=== PATIENT | male | born 1935 | race Caucasian/White ===

== ENCOUNTER 2017-02-11 15:29 | Outpatient (CLI) | payer MEDICARE, OTHER | END 2017-02-11 15:30 | disposition critical access hospital (66) | DX: R55 Syncope and collapse (principal) | CPT/HCPCS: A0425; A0427 ==

== ENCOUNTER 2017-02-11 15:49 | Emergency (ER) | payer MEDICARE, OTHER ==
[2017-02-11] MEDS ORDERED: ASPIRIN CHEW 81 MG TABLET PO STA (16:08)
[2017-02-11] MEDS ORDERED: ONDANSETRON 4 MG/2 ML VIAL IVP STA (16:08)
[2017-02-11] MEDS ORDERED: SODIUM CHLORIDE 0.9% 1,000 ML IV ONE ×3 (16:08→17:30)
[2017-02-11] MEDS ORDERED: ONDANSETRON 4 MG/2 ML VIAL ONE (16:28)
[2017-02-11] MEDS ORDERED: ASPIRIN CHEW 81 MG TABLET ONE (16:28)
== END 2017-02-11 19:11 | disposition home or self-care (01) ==
DX: R55 Syncope and collapse (principal); E86.0 Dehydration; D64.9 Anemia, unspecified; R00.1 Bradycardia, unspecified; R03.0 Elevated blood-pressure reading, without diagnosis of hypertension; Z79.82 Long term (current) use of aspirin
CPT/HCPCS: 36415; 70450; 71020; 80053; 83605; 83690; 83880; 84484; 85025; 87040; 93005; 93010; 96374; 99284; A9270

== ENCOUNTER 2017-03-05 09:01 | Outpatient (CLI) | payer MEDICARE, OTHER | END 2017-03-05 09:02 | disposition home or self-care (01) | DX: M50.30 Other cervical disc degeneration, unspecified cervical region (principal); M47.892 Other spondylosis, cervical region ==

== ENCOUNTER 2017-03-12 13:23 | Outpatient (CLI) | payer MEDICARE, OTHER | END 2017-03-12 13:24 | DX: R73.09 Other abnormal glucose (principal) ==

== ENCOUNTER 2018-03-22 08:00 | Outpatient (CLI) | payer MEDICARE, OTHER ==
[2018-03-22 11:30] LABS: BASOPHILS % (AUTO) 0.5 %; EOSINOPHILS # (AUTO) 0.5 10^3/uL (0.0-0.7); EOSINOPHILS % (AUTO) 6.1 %; LYMPHOCYTES # (AUTO) 1.5 10^3/uL (1.5-3.5); LYMPHOCYTES % (AUTO) 20.1 %; MEAN CORPUSCULAR HEMOGLOBIN 29.9 pg (27.0-31.0); MEAN CORPUSCULAR HGB CONC 33.4 g/dL (32.0-36.0); MEAN CORPUSCULAR VOLUME 89.4 fL (80.0-94.0); MEAN PLATELET VOLUME 8.4 fL (7.4-11.4); MONOCYTES # (AUTO) 0.8 10^3/uL (0.0-1.0); NEUTROPHILS # (AUTO) 4.8 10^3/uL (1.5-6.6); NEUTROPHILS % (AUTO) 62.3 %; PLT - PLATELET COUNT 281 10^3/uL (130-450); RED BLOOD COUNT 4.69 10^6/uL (4.70-6.10); RED CELL DISTRIBUTION WIDTH 14.7 % (12.0-15.0); WHITE BLOOD COUNT 7.7 x10^3/uL (4.8-10.8)
[2018-03-22 12:01] LABS: ALBUMIN 4.1 g/dL (3.2-5.5); ALBUMIN/GLOBULIN RATIO 1.4 (1.0-2.2); ALKALINE PHOSPHATASE 53 IU/L (42-121); ALT ALANINE AMINOTRANSFERASE 15 IU/L (10-60); AST ASPARTATE AMINOTRANSFERASE 21 IU/L (10-42); BUN - BLOOD UREA NITROGEN 22 mg/dL (6-20); CALCIUM 8.9 mg/dL (8.5-10.3); CARBON DIOXIDE - CO2 25 mmol/L (21-32); CHLORIDE 106 mmol/L (101-111); CHOL/HDL RATIO 3.6 (<5.0); CHOLESTEROL 208 mg/dL; CREATININE 0.9 mg/dL (0.6-1.2); GFR - MDRD 81 (>89); GLUCOSE 91 mg/dL (70-100); HDL CHOLESTEROL 58 mg/dL; LDL CHOLESTEROL,CALCULATED 134 mg/dL; LDL/HDL RATIO 2.3 (<3.6); SODIUM 138 mmol/L (135-145); VLDL CHOLESTEROL 16 mg/dL
== END 2018-03-22 08:01 | disposition home or self-care (01) ==
LOC: LAB.R 08:00
PROVIDERS: ATTEND Internal Medicine
DX: M06.4 Inflammatory polyarthropathy (principal); E78.5 Hyperlipidemia, unspecified; K58.9 Irritable bowel syndrome, unspecified
CPT/HCPCS: 80053; 80061; 83721; 85025

== ENCOUNTER 2020-08-12 08:00 | Outpatient (CLI) | payer MEDICARE, OTHER ==
[2020-08-12 11:54] LABS: BASOPHILS % (AUTO) 0.5 %; EOSINOPHILS # (AUTO) 0.4 10^3/uL (0.0-0.7); EOSINOPHILS % (AUTO) 4.7 %; HGB - HEMOGLOBIN 14.5 g/dL (14.0-18.0); LYMPHOCYTES % (AUTO) 34.9 %; MEAN CORPUSCULAR HEMOGLOBIN 29.8 pg (27.0-31.0); MEAN CORPUSCULAR HGB CONC 31.3 g/dL (32.0-36.0); MEAN CORPUSCULAR VOLUME 95.5 fL (80.0-94.0); MEAN PLATELET VOLUME 10.3 fL (7.4-11.4); MONOCYTES # (AUTO) 0.7 10^3/uL (0.0-1.0); MONOCYTES % (AUTO) 8.6 %; NEUTROPHILS # (AUTO) 4.3 10^3/uL (1.5-6.6); NEUTROPHILS % (AUTO) 50.9 %; PLT - PLATELET COUNT 330 10^3/uL (130-450); RED BLOOD COUNT 4.86 10^6/uL (4.70-6.10); RED CELL DISTRIBUTION WIDTH 13.7 % (12.0-15.0); WHITE BLOOD COUNT 8.5 x10^3/uL (4.8-10.8)
[2020-08-12 11:59] LABS: ALBUMIN 4.2 g/dL (3.2-5.5); ALBUMIN/GLOBULIN RATIO 1.4 (1.0-2.2); ALKALINE PHOSPHATASE 63 IU/L (42-121); ALT ALANINE AMINOTRANSFERASE 21 IU/L (10-60); AST ASPARTATE AMINOTRANSFERASE 17 IU/L (10-42); BILIRUBIN,TOTAL 0.8 mg/dL (0.2-1.0); BUN - BLOOD UREA NITROGEN 23 mg/dL (6-20); CALCIUM 9.8 mg/dL (8.5-10.3); CARBON DIOXIDE - CO2 29 mmol/L (21-32); CHLORIDE 104 mmol/L (101-111); CHOL/HDL RATIO 3.6 (<5.0); CHOLESTEROL 211 mg/dL; GLUCOSE 90 mg/dL (70-100); HDL CHOLESTEROL 59 mg/dL; LDL CHOLESTEROL,CALCULATED 131 mg/dL; LDL/HDL RATIO 2.2 (<3.6); SODIUM 139 mmol/L (135-145); TOTAL PROTEIN 7.1 g/dL (6.7-8.2); VLDL CHOLESTEROL 21 mg/dL
== END 2020-08-12 23:59 | disposition home or self-care (01) ==
LOC: LAB.WCP 08:00
PROVIDERS: ATTEND Family Medicine
DX: R42 Dizziness and giddiness (principal); E78.5 Hyperlipidemia, unspecified
CPT/HCPCS: 36415; 80053; 80061; 83721; 84443; 85025

== ENCOUNTER 2020-08-25 08:47 | Outpatient (CLI) | payer MEDICARE, OTHER | END 2020-08-25 08:48 | disposition home or self-care (01) | LOC: DI 08:47 | PROVIDERS: ATTEND Family Medicine | DX: I51.7 Cardiomegaly (principal) | CPT/HCPCS: 93306 ==

== ENCOUNTER 2020-09-24 10:12 | Outpatient (CLI) | payer MEDICARE, OTHER ==
[2020-09-24] MEDS ORDERED: GADOBUTROL 7.5 MMOL/7.5 ML VIAL ONE (11:39)
[2020-09-24] MEDS ORDERED: GADOBUTROL 7.5 MMOL/7.5 ML VIAL IVP ONE (12:37)
--- NOTE | 2020-09-24 16:03 | MRI Report ---
PROCEDURE: Brain W/WO INDICATIONS: DIZZINESS/VERTIGO CONTRAST: IV CONTRAST: Gadavist ml: 7.5 TECHNIQUE: Noncontrast axial T1 spin echo, axial T2 fast spin echo, sagittal and axial FLAIR, coronal T2 fast sp in echo, axial gradient echo, axial diffusion and ADC through the brain. After the administration of contrast, axial and coronal T1 spin echo with fat saturation through the brain. COMPARISON: CT head 02/11/2017, 04/14/2016 FINDINGS: Image quality: Excellent. CSF spaces: Basal cisterns are patent. No extra-axial fluid collections. Ventricles are normal in size and shape. Brain: No midline shift. No intracranial bleeds or masses. No abnormal intracranial enhancement. There is cerebral volume loss for age. There is periventricular white matter chronic small vessel is chemic change. The brainstem appears normal. Diffusion-weighted images demonstrate no acute ischemi c insults. No chronic ischemic insults. Normal intravascular flow voids are present. Cerebellopontine angles are unremarkable. Visualized cranial nerves demonstrate no areas of abnormal enhancement, signal or mass lesion. Skull and face: Calvarial marrow is normal in signal. Orbits appear normal. Sinuses: Sinuses and mastoids appear clear. IMPRESSION: 1. No acute intracranial process. 2. Mild atrophy and chronic microvascular ischemic changes. 3. Visualized cranial or symmetric no areas of abnormal enhancement, signal or mass lesion. Reviewed by: Alisha Griffin MD on 09/24/2020 4:02 PM PST Approved by: Alisha Griffin MD on 09/24/2020 4:02 PM PST Station ID: [id number]
== END 2020-09-24 10:13 | disposition home or self-care (01) ==
LOC: DI 10:12
PROVIDERS: ATTEND Family Medicine
DX: R42 Dizziness and giddiness (principal); G31.9 Degenerative disease of nervous system, unspecified; I67.2 Cerebral atherosclerosis
CPT/HCPCS: 70553; A9585

== ENCOUNTER 2021-01-27 12:54 | Outpatient (CLI) | payer MEDICARE, OTHER ==
--- NOTE | 2021-01-27 14:01 | XRAY Report ---
PROCEDURE: Lumbar Spine 2 View INDICATIONS: LOW BACK PAIN TECHNIQUE: 2 views of the lumbar spine were acquired. COMPARISON: None. FINDINGS: Bones: 5 [id number] vertebrae are present. There is loss of normal lumbar lordosis. No vertebr al body compression fractures. No suspicious bony lesions. Multilevel disc space narrowing and endp late osteophytes. Facet hypertrophy throughout the mid and lower lumbar spine. Mild diffuse leftward curvature of the lumbar spine. Soft tissues: Overlying bowel gas pattern is normal. No suspicious soft tissue calcifications. IMPRESSION: Multilevel degenerative disc and facet disease. No acute fracture. No osseous lesion. If symptoms and/or clinical suspicion for pathology continue, further assessment with repeat plain film s, or advanced imaging (e.g., CT, MRI, or bone scan) is recommended for further assessment. Reviewed by: Dixie Vasquez MD on 01/27/2021 1:59 PM PST Approved by: Dixie Vasquez MD on 01/27/2021 1:59 PM PST Station ID: [id number]
== END 2021-01-27 12:55 | disposition home or self-care (01) ==
LOC: DI 12:54
PROVIDERS: ATTEND Family Medicine
DX: M54.5 Low back pain (principal); G89.29 Other chronic pain; M51.36 Other intervertebral disc degeneration, lumbar region

== ENCOUNTER 2021-07-11 15:06 | Outpatient (CLI) | payer MEDICARE, OTHER ==
[2021-07-11 15:25] LABS: BASOPHILS # (AUTO) 0.1 10^3/uL (0.0-0.1); BASOPHILS % (AUTO) 0.5 %; EOSINOPHILS # (AUTO) 0.3 10^3/uL (0.0-0.7); EOSINOPHILS % (AUTO) 3.1 %; HCT - HEMATOCRIT 44.5 % (42.0-52.0); HGB - HEMOGLOBIN 14.4 g/dL (14.0-18.0); LYMPHOCYTES # (AUTO) 2.4 10^3/uL (1.5-3.5); LYMPHOCYTES % (AUTO) 22.1 %; MEAN CORPUSCULAR HEMOGLOBIN 30.5 pg (27.0-31.0); MEAN CORPUSCULAR HGB CONC 32.4 g/dL (32.0-36.0); MEAN CORPUSCULAR VOLUME 94.3 fL (80.0-94.0); MEAN PLATELET VOLUME 9.6 fL (7.4-11.4); MONOCYTES # (AUTO) 0.9 10^3/uL (0.0-1.0); MONOCYTES % (AUTO) 8.4 %; NEUTROPHILS # (AUTO) 7.1 10^3/uL (1.5-6.6); NEUTROPHILS % (AUTO) 65.6 %; PLT - PLATELET COUNT 316 10^3/uL (130-450); RED BLOOD COUNT 4.72 10^6/uL (4.70-6.10); RED CELL DISTRIBUTION WIDTH 13.8 % (12.0-15.0); WHITE BLOOD COUNT 10.7 x10^3/uL (4.8-10.8)
[2021-07-11 15:45] LABS: ALBUMIN 4.4 g/dL (3.2-5.5); ALBUMIN/GLOBULIN RATIO 1.6 (1.0-2.2); ALKALINE PHOSPHATASE 52 IU/L (42-121); ALT ALANINE AMINOTRANSFERASE 16 IU/L (10-60); AST ASPARTATE AMINOTRANSFERASE 16 IU/L (10-42); BILIRUBIN,TOTAL 0.5 mg/dL (0.2-1.0); BUN - BLOOD UREA NITROGEN 21 mg/dL (6-20); CALCIUM 9.8 mg/dL (8.5-10.3); CARBON DIOXIDE - CO2 23 mmol/L (21-32); CHLORIDE 103 mmol/L (101-111); CHOL/HDL RATIO 3.4 (<5.0); CHOLESTEROL 217 mg/dL; CREATININE 1.1 mg/dL (0.6-1.2); GFR - MDRD 63 (>89); GLUCOSE 104 mg/dL (70-100); HDL CHOLESTEROL 63 mg/dL; LDL CHOLESTEROL,CALCULATED 127 mg/dL; POTASSIUM 4.4 mmol/L (3.5-5.0); SODIUM 137 mmol/L (135-145); TOTAL PROTEIN 7.1 g/dL (6.7-8.2); TRIGLYCERIDES 134 mg/dL; VLDL CHOLESTEROL 27 mg/dL
== END 2021-07-11 15:07 | disposition home or self-care (01) ==
LOC: LAB 15:06
PROVIDERS: ATTEND Family Medicine
DX: Z79.899 Other long term (current) drug therapy (principal)
CPT/HCPCS: 36415; 80053; 80061; 83721; 85025

== ENCOUNTER 2022-04-14 01:32 | Emergency (ER) | payer MEDICARE, OTHER ==
[2022-04-14] MEDS ORDERED: DEXAMETHASONE 10 MG/ML VIAL IVP STA (02:49)
[2022-04-14] MEDS ORDERED: KETOROLAC 15 MG/ML VIAL IVP STA (02:50)
--- NOTE | 2022-04-14 04:19 | ED Physician Documentation ---
PD HPI NECK PAIN - Stated complaint Stated Complaint: LT NECK/BACK PX - Chief complaint Chief Complaint: Ext Problem - History obtained from History obtained from: Patient - History of Present Illness Timing - onset: Enter time (0900), Yesterday Timing - duration: Hours Timing - details: Abrupt onset, Still present Location: Mid, Lower, Left Quality: Pain, Spasm, Sharp Associated symptoms: No: Fever, Weakness, Numbness, Incontinent of urine, Unable to urinate, Hematuria, Incontinent of stool Improves with: Rest, Position Worsened by: Movement, Palpation Similar symptoms before: Has not had sx before Recently seen: Not recently seen - Additional information Additional information: Previously well 86-year-old Jadyn Chacko awoke yesterday morning with a stiff neck to the left side and he was able to go about his usual day expecting this to resolve itself. As the day went on pain worsened and he was unable to sleep or get comfortable at all. He decided to come to the emergency department in the wee hours of the morning. The patient is generally healthy is on no medications. The patient tells me he has not had a neck injury but in his chart I find a visit 7 years ago for an injury to the neck and left shoulder. The patient does state that he has woken up previously with a stiff neck and this usually resolves within several hours. He became markedly concerned when it did not resolve. He was having even a hard time moving his left arm secondary to pain in his neck. He denies any neurologic signs Review of Systems Constitutional: denies: Fever Eyes: denies: Decreased vision Ears: denies: Ear pain Nose: denies: Congestion Throat: denies: Sore throat Cardiac: denies: Chest pain / pressure, Palpitations Respiratory: denies: Dyspnea, Cough GI: denies: Abdominal Pain, Nausea, Vomiting, Constipation, Diarrhea : denies: Dysuria, Frequency Skin: denies: Rash Musculoskeletal: reports: Neck pain, Extremity pain. denies: Back pain Neurologic: denies: Generalized weakness, Focal weakness, Numbness PD PAST MEDICAL HISTORY - Past Medical History : Benign prostate hypertrophy Musculoskeletal: Chronic back pain - Past Surgical History Past Surgical History: Yes General: Appendectomy Ortho: Rotator cuff repair - Present Medications Home Medications: Ambulatory Orders Medication Instructions Recorded Confirmed Aspirin [Aspir 81] 81 mg PO QPM 07/23/15 04/14/22 Cyclobenzaprine [Flexeril] 10 mg PO TID PRN #20 tablet 04/14/22 HYDROcod/ACETAM 5/325 [[place] 5/325] 1 - 2 tablet PO Q6H PRN #14 tablet 04/14/22 - Allergies Allergies/Adverse Reactions: Allergies Allergy/AdvReac Type Severity Reaction Status Date / Time finasteride Allergy Unknown Verified 04/14/22 02:38 Sulfa (Sulfonamide Allergy Diaphoresis Verified 04/14/22 02:38 Antibiotics) - Social History Does the pt smoke?: No Smoking Status: Never smoker Does the pt drink ETOH?: No Does the pt have substance abuse?: No - Immunizations Immunizations are current?: Yes - POLST Patient has POLST: No PD ED PE NORMAL - Vitals Vital signs reviewed: Yes (hypertensive mild ) - General General: Alert and oriented X 3, No acute distress, Well developed/nourished - HEENT HEENT: Atraumatic, PERRL, EOMI - Neck Neck: Supple, no meningeal sign, No bony TTP, Other (There is specific tenderness to the paraspinous muscles of the neck on the left side posteriorly at the level of C3/4. Specific point tenderness. 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, No motor deficit, No sensory deficit, Normal speech Eye Opening: Spontaneous Motor: Obeys Commands Verbal: Oriented GCS Score: 15 - Psych Psych: Normal mood, Normal affect Results - Vitals Vitals: Vital Signs - 24 hr 04/14/22 04/14/22 01:45 04:41 Temperature 36.7 C Heart Rate 76 77 Respiratory 18 19 Rate Blood Pressure 142/61 H 135/76 H O2 Saturation 95 96 Oxygen O2 Source Room air PD MEDICAL DECISION MAKING - ED course Complexity details: reviewed old records, reviewed results, re-evaluated patient, considered differential, d/w patient ED course: 86-year-old previously well male on no medications presents to the emergency department with a stiff neck and severe pain. He has specific point tenderness to a area on his neck without palpable mass and not in an area where I would expect dissection. He is administer decadron and toradal IV with some improvement but not resolution. He is not able to take ibuprofen secondary to gastric issues and we have dispensed some norco. We are expecting recovery in 2- 5 days. Departure - Departure Disposition: 01 Home, Self Care Clinical Impression: Torticollis, acute Condition: Stable Instructions: Torticollis Follow-Up: [facility] [Provider Group] Prescriptions: Cyclobenzaprine [Flexeril] 10 mg PO TID PRN #20 tablet PRN Reason: Spasms HYDROcod/ACETAM 5/325 [[place] 5/325] 1 - 2 tablet PO Q6H PRN #14 tablet PRN Reason: Pain Comments: Jadyn, today it looks like you have a wry neck or torticollis (a stiff neck). This will usually resolve in 2 to 5 days. The recommendation is to use ice and stretch and I have provided some pain medication a muscle relaxant to use as needed. These [place] [facility] [place] Discharge Date/Time: 04/14/22 04:44
[2022-04-14] MEDS ORDERED: HYDROcod/ACET 5/325 Prepack 4 PO STA (04:22)
[2022-04-14 04:44] VITALS: BP 135/76
== END 2022-04-14 04:44 | disposition home or self-care (01) ==
LOC: ED 01:32
DX: M43.6 Torticollis (principal)
CPT/HCPCS: 36415; 96374; 99284

== ENCOUNTER 2022-09-27 12:17 | Outpatient (CLI) | payer MEDICARE, OTHER ==
[2022-09-27 12:33] LABS: BASOPHILS # (AUTO) 0.1 10^3/uL (0.0-0.1); BASOPHILS % (AUTO) 0.7 %; EOSINOPHILS # (AUTO) 0.3 10^3/uL (0.0-0.7); EOSINOPHILS % (AUTO) 3.4 %; HCT - HEMATOCRIT 47.5 % (42.0-52.0); HGB - HEMOGLOBIN 15.2 g/dL (14.0-18.0); LYMPHOCYTES # (AUTO) 1.9 10^3/uL (1.5-3.5); LYMPHOCYTES % (AUTO) 21.9 %; MEAN CORPUSCULAR HEMOGLOBIN 29.9 pg (27.0-31.0); MEAN CORPUSCULAR VOLUME 93.5 fL (80.0-94.0); MEAN PLATELET VOLUME 9.6 fL (7.4-11.4); MONOCYTES # (AUTO) 0.9 10^3/uL (0.0-1.0); MONOCYTES % (AUTO) 9.7 %; NEUTROPHILS # (AUTO) 5.7 10^3/uL (1.5-6.6); PLT - PLATELET COUNT 323 10^3/uL (130-450); RED BLOOD COUNT 5.08 10^6/uL (4.70-6.10); RED CELL DISTRIBUTION WIDTH 14.6 % (12.0-15.0); WHITE BLOOD COUNT 8.9 x10^3/uL (4.8-10.8)
[2022-09-27 12:53] LABS: ALBUMIN 4.3 g/dL (3.2-5.5); ALBUMIN/GLOBULIN RATIO 1.3 (1.0-2.2); ALKALINE PHOSPHATASE 61 IU/L (42-121); ALT ALANINE AMINOTRANSFERASE 16 IU/L (10-60); AST ASPARTATE AMINOTRANSFERASE 14 IU/L (10-42); BILIRUBIN,TOTAL 0.7 mg/dL (0.2-1.0); BUN - BLOOD UREA NITROGEN 23 mg/dL (6-20); CALCIUM 9.9 mg/dL (8.5-10.3); CARBON DIOXIDE - CO2 25 mmol/L (21-32); CHLORIDE 105 mmol/L (101-111); CHOL/HDL RATIO 3.5 (<5.0); CHOLESTEROL 230 mg/dL; CREATININE 1.2 mg/dL (0.6-1.2); GFR - MDRD 57 (>89); GLUCOSE 103 mg/dL (70-100); HDL CHOLESTEROL 65 mg/dL; LDL CHOLESTEROL,CALCULATED 144 mg/dL; LDL/HDL RATIO 2.2 (<3.6); SODIUM 139 mmol/L (135-145); TOTAL PROTEIN 7.6 g/dL (6.7-8.2); TRIGLYCERIDES 106 mg/dL; VLDL CHOLESTEROL 21 mg/dL
== END 2022-09-27 12:18 | disposition home or self-care (01) ==
LOC: LAB 12:17
PROVIDERS: ATTEND Physician Assistant
DX: R42 Dizziness and giddiness (principal); E78.5 Hyperlipidemia, unspecified
CPT/HCPCS: 36415; 80053; 80061; 83721; 85025

== ENCOUNTER 2023-01-08 14:46 | Outpatient (CLI) | payer MEDICARE, OTHER | END 2023-01-08 23:59 | disposition critical access hospital (66) | LOC: EMS 14:46 | DX: R11.2 Nausea with vomiting, unspecified (principal); R42 Dizziness and giddiness | CPT/HCPCS: A0425; A0427 ==

== ENCOUNTER 2023-01-08 15:35 | Emergency (ER) | payer MEDICARE, OTHER ==
--- OUTSIDE RECORDS SUMMARY | 2023-01-08 15:56 | EXTERNAL MEDICAL SUMMARY RPT | Continuity of Care Document ---
:1935 Author Organization [facility] Address [address] [place] [address] Phone Care Team Providers Name Role Phone Yves Chamberlain Unavailable Unavailable Allergies No information. Encounters No information. Functional Status No information. Immunizations No information. Medications date description facility 2022-12-27 00:00 [facility] 2022-12-27 00:00 [facility] 2022-12-20 00:00 [facility] Problems date description facility 2022-12-27 00:00 [facility] Procedures No information. Results/Labs test date author facility value unit interpret ation Result panel 1 (unknown) (no (unknown) (unknown) (no value) (units (unk nown) date) unknown) (unknown) (no (unknown) (unknown) 12/20/22 (units (unkno wn) date) unknown) (unknown) (no (unknown) (unknown) [id number] (units (unkno wn) date) unknown) (unknown) (no (unknown) (unknown) 87 y/o M (units (unkno wn) date) presents to unknown) clinic for trouble urination. Review medications. UA. 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 unknown) (unknown) (no (unknown) (unknown) Documented By: (units (unknown) date) Walker Andrade unknown) 12/20/22 0929 (unknown) (no (unknown) (unknown) Draft (units (unkno wn) date) unknown) (unknown) (no (unknown) (unknown) Facet (units (unkno wn) date) arthropathy, unknown) lumbar (unknown) (no (unknown) (unknown) Family History (units (unknown) date) (Reviewed unknown) 09/06/22 @ 08:39 by Tanvi Carter DO) (unknown) (no (unknown) (unknown) Greater (units (unkno wn) date) trochanteric unknown) bursitis of right hip (unknown) (no (unknown) (unknown) H/O rotator cuff (units (unknown) date) surgery unknown) (unknown) (no (unknown) (unknown) Hx of (units (unkno wn) date) appendectomy unknown) (unknown) (no (unknown) (unknown) Hypertension (units (u nknown) date) unknown) (unknown) (no (unknown) (unknown) Intake Note: (units (u nknown) date) unknown) (unknown) (no (unknown) (unknown) Intake performed (units (unknown) date) by: unknown) Reena Neal (unknown) (no (unknown) (unknown) Intake (units (unkno wn) date) unknown) (unknown) (no (unknown) (unknown) Intake- Clincial (units (unknown) date) Staff unknown) (unknown) (no (unknown) (unknown) [facility] (units (unknown) date) unknown) (unknown) (no (unknown) (unknown) Loc: [facility] (units (unkno wn) date) unknown) (unknown) (no (unknown) (unknown) Medical History (units (unknown) date) (Reviewed unknown) 09/06/22 @ 08:39 by Tanvi Carter DO) (unknown) (no (unknown) (unknown) Office (units (unkno wn) date) Procedures unknown) (unknown) (no (unknown) (unknown) PFSH (units (unkno wn) date) unknown) (unknown) (no (unknown) (unknown) Patient: (units (unkno wn) date) Sarabjit Chacko unknown) MR#: [id number] (unknown) (no (unknown) (unknown) Procedure (units (unkn own) date) performed by: unknown) Reena Neal (unknown) (no (unknown) (unknown) Reason For Visit (units (unknown) date) unknown) (unknown) (no (unknown) (unknown) Residual: post (units (unknown) date) void unknown) (unknown) (no (unknown) (unknown) Rotator cuff (units (u nknown) date) (capsule) sprain unknown) (unknown) (no (unknown) (unknown) Scoliosis (units (unkn own) date) unknown) (unknown) (no (unknown) (unknown) Signed By: (units (unk nown) date) unknown) (unknown) (no (unknown) (unknown) Smoking Status: (units (unknown) date) Never smoker unknown) (unknown) (no (unknown) (unknown) Social History (units (unknown) date) (Reviewed unknown) 11/09/21 @ 12:47 by Walker Andrade MD) (unknown) (no (unknown) (unknown) 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 (unknown) (no (unknown) (unknown) Sulfa (units (unkno wn) date) (Sulfonamide unknown) Antibiotics) Allergy (Verified 09/06/22 07:57) (unknown) (no (unknown) (unknown) Surgical History (units (unknown) date) (Reviewed unknown) 09/06/22 @ 08:39 by Tanvi Carter DO) (unknown) (no (unknown) (unknown) This note may (units ( unknown) date) have been all or unknown) partially generated using voice recognition (unknown) (no (unknown) (unknown) Tobacco Status (units (unknown) date) unknown) (unknown) (no (unknown) (unknown) Urology Office (units (unknown) date) Visit unknown) (unknown) (no (unknown) (unknown) Visit Reasons: (units (unknown) date) trouble urinating unknown) review meds/UA (unknown) (no (unknown) (unknown) alcohol intake: (units (unknown) date) current unknown) (unknown) (no (unknown) (unknown) caffeine: Yes (units ( unknown) date) unknown) (unknown) (no (unknown) (unknown) have occurred. (units (unknown) date) If there are any unknown) questions, please contact the Medical Records (unknown) (no (unknown) (unknown) marital status: (units (unknown) date) unknown) (unknown) (no (unknown) (unknown) may occur. (units (unk nown) date) Occasional unknown) wrong-word or 'sound-alike' substitutions may have (unknown) (no (unknown) (unknown) number of (units (unkn own) date) children: 0 unknown) (unknown) (no (unknown) (unknown) occurred due to (units (unknown) date) the inherent unknown) limitations of voice recognition software. Please (unknown) (no (unknown) (unknown) read the note (units ( unknown) date) carefully and unknown) recognize, using context, where these substitutions (unknown) (no (unknown) (unknown) software. (units (unkn own) date) Although every unknown) effort is made to edit content, interior design professional errors Result panel 2 (unknown) (no (unknown) (unknown) (no value) (units (unk nown) date) unknown) (unknown) (no (unknown) (unknown) 12/20/22 (units (unkno wn) date) unknown) (unknown) (no (unknown) (unknown) 09:39 (units (unkno wn) date) unknown) (unknown) (no (unknown) (unknown) [id number] (units (unkno wn) date) unknown) (unknown) (no (unknown) (unknown) 87 y/o M (units (unkno wn) date) presents to unknown) clinic for trouble urination. Review medications. UA. (unknown) (no (unknown) (unknown) Age/Sex: 87 / M (units (unknown) date) Date of Service: unknown) (unknown) (no (unknown) (unknown) Allergies (units (unkn own) date) unknown) (unknown) (no (unknown) (unknown) [place], [place] (units ( unknown) date) [id number] unknown) (unknown) (no (unknown) (unknown) Assessment + (units (u nknown) date) Plan unknown) (unknown) (no (unknown) (unknown) Attending Dr: (units ( unknown) date) Walker Andrade unknown) (unknown) (no (unknown) (unknown) BP 131/65 (units (unkn own) date) unknown) (unknown) (no (unknown) (unknown) BPH (benign (units (un known) date) prostatic unknown) hyperplasia) (unknown) (no (unknown) (unknown) BPH w urinary (units ( unknown) date) obs/LUTS unknown) (unknown) (no (unknown) (unknown) Benign prostatic (units (unknown) date) hyperplasia with unknown) lower urinary tract symptoms (unknown) (no (unknown) (unknown) Billing- Post (units ( unknown) date) Void Residual: unknown) Post Void Residual- [id number] (unknown) (no (unknown) (unknown) Bladder volume: (units (unknown) date) PVR = 85ml unknown) (unknown) (no (unknown) (unknown) Blood Pressure (units (unknown) date) Location Lt unknown) brachial (unknown) (no (unknown) (unknown) Brother Cancer (units (unknown) date) unknown) (unknown) (no (unknown) (unknown) : 1935 (units (unknown) date) Acct:[id number] unknown) (unknown) (no (unknown) (unknown) Dept at (units (unkno wn) date) . unknown) (unknown) (no (unknown) (unknown) Documented By: (units (unknown) date) Walker Andrade unknownTerry RODRIGUEZ 12/20/22 0986 (unknown) (no (unknown) (unknown) Draft (units (unkno wn) date) unknown) (unknown) (no (unknown) (unknown) Facet (units (unkno wn) date) arthropathy, unknown) lumbar (unknown) (no (unknown) (unknown) Family History (units (unknown) date) (Reviewed unknown) 09/06/22 @ 08:39 by Tanvi Carter DO) (unknown) (no (unknown) (unknown) Greater (units (unkno wn) date) trochanteric unknown) bursitis of right hip (unknown) (no (unknown) (unknown) H/O rotator cuff (units (unknown) date) surgery unknown) (unknown) (no (unknown) (unknown) Hx of (units (unkno wn) date) appendectomy unknown) (unknown) (no (unknown) (unknown) Hypertension (units (u nknown) date) unknown) (unknown) (no (unknown) (unknown) Intake Note: (units (u nknown) date) unknown) (unknown) (no (unknown) (unknown) Intake performed (units (unknown) date) by: unknown) Reena Neal (unknown) (no (unknown) (unknown) Intake (units (unkno wn) date) unknown) (unknown) (no (unknown) (unknown) Intake- Clincial (units (unknown) date) Staff unknown) (unknown) (no (unknown) (unknown) [facility] (units (unknown) date) unknown) (unknown) (no (unknown) (unknown) Loc: [facility] (units (unkno wn) date) unknown) (unknown) (no (unknown) (unknown) Medical History (units (unknown) date) (Reviewed unknown) 09/06/22 @ 08:39 by Tanvi Carter DO) (unknown) (no (unknown) (unknown) Office (units (unkno wn) date) Procedures unknown) (unknown) (no (unknown) (unknown) Orders (units (unkno wn) date) unknown) (unknown) (no (unknown) (unknown) Orders: (units (unkno wn) date) unknown) (unknown) (no (unknown) (unknown) Oxygen Delivery (units (unknown) date) Method room air unknown) (unknown) (no (unknown) (unknown) PFSH (units (unkno wn) date) unknown) (unknown) (no (unknown) (unknown) POC Urine Dip (units ( unknown) date) Today N13.8 - unknown) Other obstructive and reflux uropathy, N40.1 (unknown) (no (unknown) (unknown) Patient: (units (unkno wn) date) Sarabjit Chacko unknown) MR#: [id number] (unknown) (no (unknown) (unknown) Position Sitting (units (unknown) date) unknown) (unknown) (no (unknown) (unknown) Procedure (units (unkn own) date) performed by: unknown) Reena Neal (unknown) (no (unknown) (unknown) Pulse 76 (units (unkno wn) date) unknown) (unknown) (no (unknown) (unknown) Pulse Oximetry (units (unknown) date) (%) 100 unknown) (unknown) (no (unknown) (unknown) Pulse Source (units (u nknown) date) Monitor unknown) (unknown) (no (unknown) (unknown) Reason For Visit (units (unknown) date) unknown) (unknown) (no (unknown) (unknown) Residual: post (units (unknown) date) void unknown) (unknown) (no (unknown) (unknown) Respiration 16 (units (unknown) date) unknown) (unknown) (no (unknown) (unknown) Rotator cuff (units (u nknown) date) (capsule) sprain unknown) (unknown) (no (unknown) (unknown) Scoliosis (units (unkn own) date) unknown) (unknown) (no (unknown) (unknown) Signed By: (units (unk nown) date) unknown) (unknown) (no (unknown) (unknown) Smoking Status: (units (unknown) date) Never smoker unknown) (unknown) (no (unknown) (unknown) Social History (units (unknown) date) (Reviewed unknown) 11/09/21 @ 12:47 by Walker Andrade MD) (unknown) (no (unknown) (unknown) 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 (unknown) (no (unknown) (unknown) Sulfa (units (unkno wn) date) (Sulfonamide unknown) Antibiotics) Allergy (Verified 09/06/22 07:57) (unknown) (no (unknown) (unknown) Surgical History (units (unknown) date) (Reviewed unknown) 09/06/22 @ 08:39 by Tanvi Carter DO) (unknown) (no (unknown) (unknown) This note may (units ( unknown) date) have been all or unknown) partially generated using voice recognition (unknown) (no (unknown) (unknown) Tobacco Status (units (unknown) date) unknown) (unknown) (no (unknown) (unknown) Urology Office (units (unknown) date) Visit unknown) (unknown) (no (unknown) (unknown) Visit Reasons: (units (unknown) date) trouble urinating unknown) review meds/UA (unknown) (no (unknown) (unknown) Vitals (units (unkno wn) date) unknown) (unknown) (no (unknown) (unknown) alcohol intake: (units (unknown) date) current unknown) (unknown) (no (unknown) (unknown) caffeine: Yes (units ( unknown) date) unknown) (unknown) (no (unknown) (unknown) have occurred. (units (unknown) date) If there are any unknown) questions, please contact the Medical Records (unknown) (no (unknown) (unknown) marital status: (units (unknown) date) unknown) (unknown) (no (unknown) (unknown) may occur. (units (unk nown) date) Occasional unknown) wrong-word or 'sound-alike' substitutions may have (unknown) (no (unknown) (unknown) number of (units (unkn own) date) children: 0 unknown) (unknown) (no (unknown) (unknown) occurred due to (units (unknown) date) the inherent unknown) limitations of voice recognition software. Please (unknown) (no (unknown) (unknown) read the note (units ( unknown) date) carefully and unknown) recognize, using context, where these substitutions (unknown) (no (unknown) (unknown) software. (units (unkn own) date) Although every unknown) effort is made to edit content, interior design professional errors Result panel 3 (unknown) (no (unknown) (unknown) (no value) (units (unk nown) date) unknown) (unknown) (no (unknown) (unknown) 12/20/22 (units (unkno wn) date) unknown) (unknown) (no (unknown) (unknown) 09:39 (units (unkno wn) date) unknown) (unknown) (no (unknown) (unknown) 09:41 (units (unkno wn) date) unknown) (unknown) (no (unknown) (unknown) 23 (units (unkno wn) date) unknown) (unknown) (no (unknown) (unknown) 3 (units (unkno wn) date) unknown) (unknown) (no (unknown) (unknown) [id number] (units (unkno wn) date) unknown) (unknown) (no (unknown) (unknown) 41 (units (unkno wn) date) unknown) (unknown) (no (unknown) (unknown) 87 y/o M (units (unkno wn) date) presents to unknown) clinic for trouble urination. Review medications. UA. (unknown) (no (unknown) (unknown) :41 (units (unkno wn) date) unknown) (unknown) (no (unknown) (unknown) Age/Sex: 87 / M (units (unknown) date) Date of Service: unknown) (unknown) (no (unknown) (unknown) Allergies (units (unkn own) date) unknown) (unknown) (no (unknown) (unknown) [place], [place] (units ( unknown) date) [id number] unknown) (unknown) (no (unknown) (unknown) Assessment + (units (u nknown) date) Plan unknown) (unknown) (no (unknown) (unknown) Attending Dr: (units ( unknown) date) Walker Andraed unknown) (unknown) (no (unknown) (unknown) BP 131/65 (units (unkn own) date) unknown) (unknown) (no (unknown) (unknown) BPH (benign (units (un known) date) prostatic unknown) hyperplasia) (unknown) (no (unknown) (unknown) BPH w urinary (units ( unknown) date) obs/LUTS unknown) (unknown) (no (unknown) (unknown) Benign prostatic (units (unknown) date) hyperplasia with unknown) lower urinary tract symptoms (unknown) (no (unknown) (unknown) Billing- Post (units ( unknown) date) Void Residual: unknown) Post Void Residual- [id number] (unknown) (no (unknown) (unknown) Bladder volume: (units (unknown) date) PVR = 85ml unknown) (unknown) (no (unknown) (unknown) Blood Pressure (units (unknown) date) Location Lt unknown) brachial (unknown) (no (unknown) (unknown) Brother Cancer (units (unknown) date) unknown) (unknown) (no (unknown) (unknown) : 1935 (units (unknown) date) Acct:[id number] unknown) (unknown) (no (unknown) (unknown) Dept at (units (unkno wn) date) . unknown) (unknown) (no (unknown) (unknown) Documented By: (units (unknown) date) Walker Andrade unknown) 12/20/22 0929 (unknown) (no (unknown) (unknown) Draft (units (unkno wn) date) unknown) (unknown) (no (unknown) (unknown) Facet (units (unkno wn) date) arthropathy, unknown) lumbar (unknown) (no (unknown) (unknown) Family History (units (unknown) date) (Reviewed unknown) 09/06/22 @ 08:39 by Tanvi Carter DO) (unknown) (no (unknown) (unknown) Greater (units (unkno wn) date) trochanteric unknown) bursitis of right hip (unknown) (no (unknown) (unknown) H/O rotator cuff (units (unknown) date) surgery unknown) (unknown) (no (unknown) (unknown) Hx of (units (unkno wn) date) appendectomy unknown) (unknown) (no (unknown) (unknown) Hypertension (units (u nknown) date) unknown) (unknown) (no (unknown) (unknown) Intake Note: (units (u nknown) date) unknown) (unknown) (no (unknown) (unknown) Intake performed (units (unknown) date) by: unknown) eRena Neal (unknown) (no (unknown) (unknown) Intake (units (unkno wn) date) unknown) (unknown) (no (unknown) (unknown) Intake- Clincial (units (unknown) date) Staff unknown) (unknown) (no (unknown) (unknown) [facility] (units (unknown) date) unknown) (unknown) (no (unknown) (unknown) Loc: [facility] (units (unkno wn) date) unknown) (unknown) (no (unknown) (unknown) Medical History (units (unknown) date) (Reviewed unknown) 09/06/22 @ 08:39 by Tanvi Carter DO) (unknown) (no (unknown) (unknown) Office (units (unkno wn) date) Procedures unknown) (unknown) (no (unknown) (unknown) Orders (units (unkno wn) date) unknown) (unknown) (no (unknown) (unknown) Orders: (units (unkno wn) date) unknown) (unknown) (no (unknown) (unknown) Oxygen Delivery (units (unknown) date) Method room air unknown) (unknown) (no (unknown) (unknown) PFSH (units (unkno wn) date) unknown) (unknown) (no (unknown) (unknown) POC Urine Dip (units ( unknown) date) Today N13.8 - unknown) Other obstructive and reflux uropathy, N40.1 (unknown) (no (unknown) (unknown) Patient: (units (unkno wn) date) Sarabjit Chacko unknown) MR#: [id number] (unknown) (no (unknown) (unknown) Position Sitting (units (unknown) date) unknown) (unknown) (no (unknown) (unknown) Procedure (units (unkn own) date) performed by: unknown) Reena Neal (unknown) (no (unknown) (unknown) Pulse 76 (units (unkno wn) date) unknown) (unknown) (no (unknown) (unknown) Pulse Oximetry (units (unknown) date) (%) 100 unknown) (unknown) (no (unknown) (unknown) Pulse Source (units (u nknown) date) Monitor unknown) (unknown) (no (unknown) (unknown) Reason For Visit (units (unknown) date) unknown) (unknown) (no (unknown) (unknown) Residual: post (units (unknown) date) void unknown) (unknown) (no (unknown) (unknown) Respiration 16 (units (unknown) date) unknown) (unknown) (no (unknown) (unknown) Results (units (unkno wn) date) unknown) (unknown) (no (unknown) (unknown) Rotator cuff (units (u nknown) date) (capsule) sprain unknown) (unknown) (no (unknown) (unknown) Scoliosis (units (unkn own) date) unknown) (unknown) (no (unknown) (unknown) Signed By: (units (unk nown) date) unknown) (unknown) (no (unknown) (unknown) Smoking Status: (units (unknown) date) Never smoker unknown) (unknown) (no (unknown) (unknown) Social History (units (unknown) date) (Reviewed unknown) 11/09/21 @ 12:47 by Walker Andrade MD) (unknown) (no (unknown) (unknown) 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 (unknown) (no (unknown) (unknown) Sulfa (units (unkno wn) date) (Sulfonamide unknown) Antibiotics) Allergy (Verified 09/06/22 07:57) (unknown) (no (unknown) (unknown) Surgical History (units (unknown) date) (Reviewed unknown) 09/06/22 @ 08:39 by Tanvi Carter DO) (unknown) (no (unknown) (unknown) This note may (units ( unknown) date) have been all or unknown) partially generated using voice recognition (unknown) (no (unknown) (unknown) Tobacco Status (units (unknown) date) unknown) (unknown) (no (unknown) (unknown) Urine Appearance (units (unknown) date) Clear Last Edit unknown) by Reena Neal RN on 12/20/22 09:41 (unknown) (no (unknown) (unknown) Urine Bilirubin (units (unknown) date) Negative Last unknown) Edit by Reena Neal RN on 12/20/22 09:41 (unknown) (no (unknown) (unknown) Urine Blood (units (un known) date) Negative Last unknown) Edit by Reena Neal RN on 12/20/22 09:41 (unknown) (no (unknown) (unknown) Urine Color (units (un known) date) Yellow Last Edit unknown) by Reena Neal RN on 12/20/22 09:41 (unknown) (no (unknown) (unknown) Urine Dipstick (units (unknown) date) unknown) (unknown) (no (unknown) (unknown) Urine Glucose (units ( unknown) date) Negative mg/dL unknown) Last Edit by Reena Neal RN on 12/20/22 09: (unknown) (no (unknown) (unknown) Urine Ketones (units ( unknown) date) Negative Last unknown) Edit by Reena Neal RN on 12/20/22 09:41 (unknown) (no (unknown) (unknown) Urine Leukocyte (units (unknown) date) Esterase Negative unknown) Last Edit by Reena Neal RN on (unknown) (no (unknown) (unknown) Urine Nitrate (units ( unknown) date) Negative Last unknown) Edit by Reena Neal RN on 12/20/22 09:41 (unknown) (no (unknown) (unknown) Urine Protein (units ( unknown) date) Negative Last unknown) Edit by Reena Neal RN on 12/20/22 09:41 (unknown) (no (unknown) (unknown) Urine Specific (units (unknown) date) [place] 1.030 unknown) Last Edit by Reena Neal RN on 12/20/22 09 (unknown) (no (unknown) (unknown) Urine (units (unkno wn) date) Urobilinogen - unknown) 0.2 mg/dL Last Edit by Reena Neal RN on (unknown) (no (unknown) (unknown) Urine pH 6.0 (units (u nknown) date) Last Edit by unknown) Reena Neal RN on 12/20/22 09:41 (unknown) (no (unknown) (unknown) Urology Office (units (unknown) date) Visit unknown) (unknown) (no (unknown) (unknown) Visit Reasons: (units (unknown) date) trouble urinating unknown) review meds/UA (unknown) (no (unknown) (unknown) Vitals (units (unkno wn) date) unknown) (unknown) (no (unknown) (unknown) alcohol intake: (units (unknown) date) current unknown) (unknown) (no (unknown) (unknown) caffeine: Yes (units ( unknown) date) unknown) (unknown) (no (unknown) (unknown) have occurred. (units (unknown) date) If there are any unknown) questions, please contact the Medical Records (unknown) (no (unknown) (unknown) marital status: (units (unknown) date) unknown) (unknown) (no (unknown) (unknown) may occur. (units (unk nown) date) Occasional unknown) wrong-word or 'sound-alike' substitutions may have (unknown) (no (unknown) (unknown) number of (units (unkn own) date) children: 0 unknown) (unknown) (no (unknown) (unknown) occurred due to (units (unknown) date) the inherent unknown) limitations of voice recognition software. Please (unknown) (no (unknown) (unknown) read the note (units ( unknown) date) carefully and unknown) recognize, using context, where these substitutions (unknown) (no (unknown) (unknown) software. (units (unkn own) date) Although every unknown) effort is made to edit content, interior design professional errors Result panel 4 (unknown) (no (unknown) (unknown) (no value) (units (unk nown) date) unknown) (unknown) (no (unknown) (unknown) (1) BPH w (units (unkn own) date) urinary obs/LUTS: unknown) (unknown) (no (unknown) (unknown) 12/20/22 0958 (units ( unknown) date) unknown) (unknown) (no (unknown) (unknown) 12/20/22 (units (unkno wn) date) unknown) (unknown) (no (unknown) (unknown) 09:39 (units (unkno wn) date) unknown) (unknown) (no (unknown) (unknown) 09:41 (units (unkno wn) date) unknown) (unknown) (no (unknown) (unknown) 1. Return to (units (u nknown) date) [facility] in unknown) 4-6 weeks for clinical update and PVR. (unknown) (no (unknown) (unknown) 2. Rx alfuzosin (units (unknown) date) 10 mg p.o. q.day. unknown) Common side effects, precautions, and intake (unknown) (no (unknown) (unknown) 23 (units (unkno wn) date) unknown) (unknown) (no (unknown) (unknown) 3 (units (unkno wn) date) unknown) (unknown) (no (unknown) (unknown) 3. 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 (unknown) (no (unknown) (unknown) [id number] (units (unkno wn) date) unknown) (unknown) (no (unknown) (unknown) 4. Consider (units (un known) date) cystoscopy and unknown) prostate ultrasound for volume determination if not (unknown) (no (unknown) (unknown) 41 (units (unkno wn) date) unknown) (unknown) (no (unknown) (unknown) 87 y/o M (units (unkno wn) date) presents to unknown) clinic for trouble urination. Review medications. UA. (unknown) (no (unknown) (unknown) :41 (units (unkno wn) date) unknown) (unknown) (no (unknown) (unknown) Age/Sex: 87 / M (units (unknown) date) Date of Service: unknown) (unknown) (no (unknown) (unknown) All systems (units (un known) date) reviewed + are unknown) unremarkable except as noted in HPI and below (unknown) (no (unknown) (unknown) Allergies (units (unkn own) date) unknown) (unknown) (no (unknown) (unknown) [place], [place] (units ( unknown) date) [id number] unknown) (unknown) (no (unknown) (unknown) Assessment + (units (u nknown) date) Plan unknown) (unknown) (no (unknown) (unknown) Attending Dr: (units ( unknown) date) Walker Andrade unknown) (unknown) (no (unknown) (unknown) BP 131/65 (units (unkn own) date) unknown) (unknown) (no (unknown) (unknown) BPH (benign (units (un known) date) prostatic unknown) hyperplasia) (unknown) (no (unknown) (unknown) BPH w urinary (units ( unknown) date) obs/LUTS unknown) (unknown) (no (unknown) (unknown) Benign prostatic (units (unknown) date) hyperplasia with unknown) lower urinary tract symptoms (unknown) (no (unknown) (unknown) Billing- Post (units ( unknown) date) Void Residual: unknown) Post Void Residual- [id number] (unknown) (no (unknown) (unknown) Bladder volume: (units (unknown) date) PVR = 85ml unknown) (unknown) (no (unknown) (unknown) Blood Pressure (units (unknown) date) Location Lt unknown) brachial (unknown) (no (unknown) (unknown) Brother Cancer (units (unknown) date) unknown) (unknown) (no (unknown) (unknown) Chief Complaint (units (unknown) date) unknown) (unknown) (no (unknown) (unknown) Chief Complaint: (units (unknown) date) BPH/LUTS unknown) (unknown) (no (unknown) (unknown) Code(s): (units (unkno wn) date) unknown) (unknown) (no (unknown) (unknown) Const (units (unkno wn) date) unknown) (unknown) (no (unknown) (unknown) : 1935 (units (unknown) date) Acct:[id number] unknown) (unknown) (no (unknown) (unknown) Dept at (units (unkno wn) date) . unknown) (unknown) (no (unknown) (unknown) Details: (units (unkno wn) date) unknown) (unknown) (no (unknown) (unknown) Documented By: (units (unknown) date) Walker Andrade unknownTerry RODRIGUEZ 12/20/22 0929 (unknown) (no (unknown) (unknown) Encounter (units (unkn own) date) documentation, Rx unknown) submission, and billing-10 minutes (unknown) (no (unknown) (unknown) Exam Narrative (units (unknown) date) unknown) (unknown) (no (unknown) (unknown) Exam Narrative: (units (unknown) date) unknown) (unknown) (no (unknown) (unknown) Exam (units (unkno wn) date) unknown) (unknown) (no (unknown) (unknown) Izwu-ii-wnwl (units (u nknown) date) encounter-15 unknown) minutes (unknown) (no (unknown) (unknown) Facet (units (unkno wn) date) arthropathy, unknown) lumbar (unknown) (no (unknown) (unknown) Family History (units (unknown) date) (Reviewed unknown) 12/20/22 @ 09:55 by Walker Andrade MD) (unknown) (no (unknown) (unknown) Greater (units (unkno wn) date) trochanteric unknown) bursitis of right hip (unknown) (no (unknown) (unknown) H/O rotator cuff (units (unknown) date) surgery unknown) (unknown) (no (unknown) (unknown) HPI (units (unkno wn) date) unknown) (unknown) (no (unknown) (unknown) Hx of (units (unkno wn) date) appendectomy unknown) (unknown) (no (unknown) (unknown) Hypertension (units (u nknown) date) unknown) (unknown) (no (unknown) (unknown) Intake Note: (units (u nknown) date) unknown) (unknown) (no (unknown) (unknown) Intake performed (units (unknown) date) by: unknown) Reena Neal (unknown) (no (unknown) (unknown) Intake (units (unkno wn) date) unknown) (unknown) (no (unknown) (unknown) Intake- Clincial (units (unknown) date) Staff unknown) (unknown) (no (unknown) (unknown) [facility] (units (unknown) date) unknown) (unknown) (no (unknown) (unknown) Loc: [facility] (units (unkno wn) date) unknown) (unknown) (no (unknown) (unknown) Sarabjit returns (units (unknown) date) today for unknown) follow-up of a long history of BPH/LUTS on long-term (unknown) (no (unknown) (unknown) Medical History (units (unknown) date) (Reviewed unknown) 12/20/22 @ 09:55 by Walker Andrade MD) (unknown) (no (unknown) (unknown) Medications: (units (u nknown) date) unknown) (unknown) (no (unknown) (unknown) N40.1 - Benign (units (unknown) date) prostatic unknown) hyperplasia with lower urinary tract symptoms; N13.8 (unknown) (no (unknown) (unknown) New (units (unkno wn) date) unknown) (unknown) (no (unknown) (unknown) Nocturia x3. His (units (unknown) date) reported unknown) complaints predated running out of finasteride. He (unknown) (no (unknown) (unknown) Not repeated (units (u nknown) date) today. 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 (unknown) (no (unknown) (unknown) Oxygen Delivery (units (unknown) date) Method room air unknown) (unknown) (no (unknown) (unknown) PFSH (units (unkno wn) date) unknown) (unknown) (no (unknown) (unknown) POC Urine Dip (units ( unknown) date) Today N13.8 - unknown) Other obstructive and reflux uropathy, N40.1 (unknown) (no (unknown) (unknown) Patient: (units (unkno wn) date) Sarabjit Chacko unknown) MR#: [id number] (unknown) (no (unknown) (unknown) Plan (units (unkno wn) date) unknown) (unknown) (no (unknown) (unknown) Position Sitting (units (unknown) date) unknown) (unknown) (no (unknown) (unknown) Procedure (units (unkn own) date) performed by: unknown) Reena Neal (unknown) (no (unknown) (unknown) Pulse 76 (units (unkno wn) date) unknown) (unknown) (no (unknown) (unknown) Pulse Oximetry (units (unknown) date) (%) 100 unknown) (unknown) (no (unknown) (unknown) Pulse Source (units (u nknown) date) Monitor unknown) (unknown) (no (unknown) (unknown) ROS (units (unkno wn) date) unknown) (unknown) (no (unknown) (unknown) Reason For Visit (units (unknown) date) unknown) (unknown) (no (unknown) (unknown) Residual: post (units (unknown) date) void unknown) (unknown) (no (unknown) (unknown) Respiration 16 (units (unknown) date) unknown) (unknown) (no (unknown) (unknown) Results (units (unkno wn) date) unknown) (unknown) (no (unknown) (unknown) Review of (units (unkn own) date) clinical chart unknown) note history, patient data, interval provider notes (unknown) (no (unknown) (unknown) Reviewed (units (unkno wn) date) findings, unknown) discussed impression common explained rationale and (unknown) (no (unknown) (unknown) Rotator cuff (units (u nknown) date) (capsule) sprain unknown) (unknown) (no (unknown) (unknown) Scoliosis (units (unkn own) date) unknown) (unknown) (no (unknown) (unknown) Signed By: (units (unk nown) date) <Electronically unknown) signed by Walker Andrade MD> (unknown) (no (unknown) (unknown) Signed (units (unkno wn) date) unknown) (unknown) (no (unknown) (unknown) Smoking Status: (units (unknown) date) Never smoker unknown) (unknown) (no (unknown) (unknown) Social History (units (unknown) date) (Reviewed unknown) 12/20/22 @ 09:55 by Walker Andrade MD) (unknown) (no (unknown) (unknown) 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 (unknown) (no (unknown) (unknown) Status: Acute (units ( unknown) date) unknown) (unknown) (no (unknown) (unknown) Sulfa (units (unkno wn) date) (Sulfonamide unknown) Antibiotics) Allergy (Verified 09/06/22 07:57) (unknown) (no (unknown) (unknown) Surgical History (units (unknown) date) (Reviewed unknown) 12/20/22 @ 09:55 by Walker Andrade MD) (unknown) (no (unknown) (unknown) This note may (units ( unknown) date) have been all or unknown) partially generated using voice recognition (unknown) (no (unknown) (unknown) Tobacco Status (units (unknown) date) unknown) (unknown) (no (unknown) (unknown) Urinalysis today (units (unknown) date) is clear. PVR is unknown) 85 cc. (unknown) (no (unknown) (unknown) Urine Appearance (units (unknown) date) Clear Last Edit unknown) by Reena Neal RN on 12/20/22 09:41 (unknown) (no (unknown) (unknown) Urine Bilirubin (units (unknown) date) Negative Last unknown) Edit by Reena Neal RN on 12/20/22 09:41 (unknown) (no (unknown) (unknown) Urine Blood (units (un known) date) Negative Last unknown) Edit by Reena Neal RN on 12/20/22 09:41 (unknown) (no (unknown) (unknown) Urine Color (units (un known) date) Yellow Last Edit unknown) by Reena Neal RN on 12/20/22 09:41 (unknown) (no (unknown) (unknown) Urine Dipstick (units (unknown) date) unknown) (unknown) (no (unknown) (unknown) Urine Glucose (units ( unknown) date) Negative mg/dL unknown) Last Edit by Reena Neal RN on 12/20/22 09: (unknown) (no (unknown) (unknown) Urine Ketones (units ( unknown) date) Negative Last unknown) Edit by Reena Neal RN on 12/20/22 09:41 (unknown) (no (unknown) (unknown) Urine Leukocyte (units (unknown) date) Esterase Negative unknown) Last Edit by Reena Neal RN on (unknown) (no (unknown) (unknown) Urine Nitrate (units ( unknown) date) Negative Last unknown) Edit by Reena Neal RN on 12/20/22 09:41 (unknown) (no (unknown) (unknown) Urine Protein (units ( unknown) date) Negative Last unknown) Edit by Reena Neal RN on 12/20/22 09:41 (unknown) (no (unknown) (unknown) Urine Specific (units (unknown) date) [place] 1.030 unknown) Last Edit by Reena Neal RN on 12/20/22 09 (unknown) (no (unknown) (unknown) Urine (units (unkno wn) date) Urobilinogen - unknown) 0.2 mg/dL Last Edit by Reena Neal RN on 02/01/2 (unknown) (no (unknown) (unknown) Urine pH 6.0 (units (u nknown) date) Last Edit by unknown) Reena Neal RN on 12/20/22 09:41 (unknown) (no (unknown) (unknown) Urology Office (units (unknown) date) Visit unknown) (unknown) (no (unknown) (unknown) Visit Reasons: (units (unknown) date) trouble urinating unknown) review meds/UA (unknown) (no (unknown) (unknown) Vitals (units (unkno wn) date) unknown) (unknown) (no (unknown) (unknown) administer after (units (unknown) date) the same meal unknown) each day 10 mg PO DAILY 90 tabs 3RF (unknown) (no (unknown) (unknown) alcohol intake: (units (unknown) date) current unknown) (unknown) (no (unknown) (unknown) alfuzosin ER (units (u nknown) date) (Uroxatral) unknown) (unknown) (no (unknown) (unknown) availability of (units (unknown) date) alpha blockade unknown) trial. Also discussed rationale for lower tract (unknown) (no (unknown) (unknown) ay occur. (units (unkn own) date) Occasional unknown) wrong-word or 'sound-alike' substitutions may have (unknown) (no (unknown) (unknown) caffeine: Yes (units ( unknown) date) unknown) (unknown) (no (unknown) (unknown) evaluation (units (unk nown) date) should medical unknown) therapy not be successful or satisfactory. (unknown) (no (unknown) (unknown) finasteride CASSIE (units (unknown) date) therapy. He ran unknown) out of finasteride about a month ago. A (unknown) (no (unknown) (unknown) had been on an (units (unknown) date) alpha-bam unknown) many years ago but was discontinued by a previous (unknown) (no (unknown) (unknown) have occurred. (units (unknown) date) If there are any unknown) questions, please contact the Medical Records (unknown) (no (unknown) (unknown) improved with (units ( unknown) date) addition of alpha unknown) blockade. (unknown) (no (unknown) (unknown) instructions (units (u nknown) date) explained. unknown) (unknown) (no (unknown) (unknown) marital status: (units (unknown) date) unknown) (unknown) (no (unknown) (unknown) number of (units (unkn own) date) children: 0 unknown) (unknown) (no (unknown) (unknown) occurred due to (units (unknown) date) the inherent unknown) limitations of voice recognition software. Please (unknown) (no (unknown) (unknown) picked it up. He (units (unknown) date) reports ongoing unknown) and progressive slowing of the urinary stream. (unknown) (no (unknown) (unknown) prescription (units (u nknown) date) refill is been unknown) submitted to the [facility] pharmacy, but he is not yet (unknown) (no (unknown) (unknown) read the note (units ( unknown) date) carefully and unknown) recognize, using context, where these substitutions (unknown) (no (unknown) (unknown) related to (units (unk nown) date) spinal stenosis unknown) and lumbar radiculopathy-10 minutes (unknown) (no (unknown) (unknown) side effects. He (units (unknown) date) otherwise denies unknown) interval new complaints. (unknown) (no (unknown) (unknown) software. (units (unkn own) date) Although every unknown) effort is made to edit content, interior design professional errors m (unknown) (no (unknown) (unknown) urologist for (units ( unknown) date) uncertain unknown) reasons. The patient does not recall having untoward Result panel 5 (unknown) (no (unknown) (unknown) (no value) (units (unk nown) date) unknown) (unknown) (no (unknown) (unknown) 12/27/22 (units (unkno wn) date) unknown) (unknown) (no (unknown) (unknown) 12/27/22] (units (unkn own) date) unknown) (unknown) (no (unknown) (unknown) 10/04/20 (units (unkno wn) date) [History unknown) Confirmed 12/27/22] (unknown) (no (unknown) (unknown) [id number] (units (unkno wn) date) unknown) (unknown) (no (unknown) (unknown) Accompanied by: (units (unknown) date) Self / Same As unknown) Patient (unknown) (no (unknown) (unknown) Age/Sex: 87 / M (units (unknown) date) Date of Service: unknown) (unknown) (no (unknown) (unknown) Allergies (units (unkn own) date) unknown) (unknown) (no (unknown) (unknown) [place], [place] (units ( unknown) date) [id number] unknown) (unknown) (no (unknown) (unknown) Attending Dr: (units ( unknown) date) Tanvi Carter unknown) D.O. (unknown) (no (unknown) (unknown) BPH (benign (units (un known) date) prostatic unknown) hyperplasia) (unknown) (no (unknown) (unknown) BPH w urinary (units ( unknown) date) obs/LUTS unknown) (unknown) (no (unknown) (unknown) Brother Cancer (units (unknown) date) unknown) (unknown) (no (unknown) (unknown) Confirmed (units (unkn own) date) 12/27/22] unknown) (unknown) (no (unknown) (unknown) : 1935 (units (unknown) date) Acct:[id number] unknown) (unknown) (no (unknown) (unknown) Dept at (units (unkno wn) date) . unknown) (unknown) (no (unknown) (unknown) Diet and (units (unkno wn) date) Exercise unknown) (unknown) (no (unknown) (unknown) Documented By: (units (unknown) date) Tanvi Carter unknown) D.O. 12/27/22 0800 (unknown) (no (unknown) (unknown) Draft (units (unkno wn) date) unknown) (unknown) (no (unknown) (unknown) Facet (units (unkno wn) date) arthropathy, unknown) lumbar (unknown) (no (unknown) (unknown) Family History (units (unknown) date) (Reviewed unknown) 12/20/22 @ 09:55 by Walker Andrade MD) (unknown) (no (unknown) (unknown) Greater (units (unkno wn) date) trochanteric unknown) bursitis of right hip (unknown) (no (unknown) (unknown) H/O rotator cuff (units (unknown) date) surgery unknown) (unknown) (no (unknown) (unknown) HERE FOR POST (units ( unknown) date) LUMBAR RFA unknown) (unknown) (no (unknown) (unknown) Hx of (units (unkno wn) date) appendectomy unknown) (unknown) (no (unknown) (unknown) Hypertension (units (u nknown) date) unknown) (unknown) (no (unknown) (unknown) Intake Clinical (units (unknown) date) Staff unknown) (unknown) (no (unknown) (unknown) Intake Note: (units (u nknown) date) unknown) (unknown) (no (unknown) (unknown) Intake performed (units (unknown) date) by: Rosa Marshall unknown) (unknown) (no (unknown) (unknown) Intake (units (unkno wn) date) unknown) (unknown) (no (unknown) (unknown) Loc: PAIN (units (unkn own) date) unknown) (unknown) (no (unknown) (unknown) Medical History (units (unknown) date) (Reviewed unknown) 12/20/22 @ 09:55 by Walker Andrade MD) (unknown) (no (unknown) (unknown) Medications (units (un known) date) unknown) (unknown) (no (unknown) (unknown) PFSH (units (unkno wn) date) unknown) (unknown) (no (unknown) (unknown) Pain Visit (units (unk nown) date) unknown) (unknown) (no (unknown) (unknown) Patient: (units (unkno wn) date) Sarabjit Chacko unknown) MR#: [id number] (unknown) (no (unknown) (unknown) Reason For Visit (units (unknown) date) unknown) (unknown) (no (unknown) (unknown) Rotator cuff (units (u nknown) date) (capsule) sprain unknown) (unknown) (no (unknown) (unknown) Scoliosis (units (unkn own) date) unknown) (unknown) (no (unknown) (unknown) Signed By: (units (unk nown) date) unknown) (unknown) (no (unknown) (unknown) Smoking Status: (units (unknown) date) Never smoker unknown) (unknown) (no (unknown) (unknown) Social History (units (unknown) date) unknown) (unknown) (no (unknown) (unknown) 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 (unknown) (no (unknown) (unknown) Sulfa (units (unkno wn) date) (Sulfonamide unknown) Antibiotics) Allergy (Verified 12/27/22 08:01) (unknown) (no (unknown) (unknown) Surgical History (units (unknown) date) (Reviewed unknown) 12/20/22 @ 09:55 by Walker Andrade MD) (unknown) (no (unknown) (unknown) [facility] unknown) (unknown) (no (unknown) (unknown) This note may (units ( unknown) date) have been all or unknown) partially generated using voice recognition (unknown) (no (unknown) (unknown) Tobacco + (units (unkn own) date) Substance Use unknown) (unknown) (no (unknown) (unknown) Tobacco Status (units (unknown) date) unknown) (unknown) (no (unknown) (unknown) Visit Reasons: (units (unknown) date) RFA Follow Up, unknown) POST LUMBAR INJECTION (unknown) (no (unknown) (unknown) alcohol intake: (units (unknown) date) current unknown) (unknown) (no (unknown) (unknown) alfuzosin 10 mg (units (unknown) date) tablet,extended unknown) release 24 hr (Uroxatral) 10 mg PO DAILY #90 (unknown) (no (unknown) (unknown) aspirin 81 mg (units ( unknown) date) tablet,delayed unknown) release (Adult Aspirin Regimen) 81 mg PO DAILY (unknown) (no (unknown) (unknown) caffeine: Yes (units ( unknown) date) unknown) (unknown) (no (unknown) (unknown) fexofenadine 180 (units (unknown) date) mg tablet unknown) (Ann Allergy) 180 mg PO DAILY 10/04/20 [History (unknown) (no (unknown) (unknown) finasteride 5 mg (units (unknown) date) tablet 5 mg PO unknown) DAILY 12/27/22 [History Confirmed 12/27/22] (unknown) (no (unknown) (unknown) have occurred. (units (unknown) date) If there are any unknown) questions, please contact the Medical Records (unknown) (no (unknown) (unknown) magnesium 250 mg (units (unknown) date) tablet 250 mg PO unknown) DAILY 10/29/20 [History Confirmed 12/27/22] (unknown) (no (unknown) (unknown) marital status: (units (unknown) date) unknown) (unknown) (no (unknown) (unknown) may occur. (units (unk nown) date) Occasional unknown) wrong-word or 'sound-alike' substitutions may have (unknown) (no (unknown) (unknown) number of (units (unkn own) date) children: 0 unknown) (unknown) (no (unknown) (unknown) occurred due to (units (unknown) date) the inherent unknown) limitations of voice recognition software. Please (unknown) (no (unknown) (unknown) read the note (units ( unknown) date) carefully and unknown) recognize, using context, where these substitutions (unknown) (no (unknown) (unknown) software. (units (unkn own) date) Although every unknown) effort is made to edit content, interior design professional errors (unknown) (no (unknown) (unknown) tabs 12/20/22 (units ( unknown) date) [Rx Confirmed unknown) 12/27/22] (unknown) (no (unknown) (unknown) tramadol 50 mg (units (unknown) date) tablet 50 mg PO unknown) BEDTIME PRN pain #42 tabs 09/06/22 [Rx Confirmed Result panel 6 (unknown) (no (unknown) (unknown) (no value) (units (unk nown) date) unknown) (unknown) (no (unknown) (unknown) 12/27/22 (units (unkno wn) date) unknown) (unknown) (no (unknown) (unknown) 12/27/22] (units (unkn own) date) unknown) (unknown) (no (unknown) (unknown) 08:07 (units (unkno wn) date) unknown) (unknown) (no (unknown) (unknown) 10/04/20 (units (unkno wn) date) [History unknown) Confirmed 12/27/22] (unknown) (no (unknown) (unknown) [id number] (units (unkno wn) date) unknown) (unknown) (no (unknown) (unknown) Accompanied by: (units (unknown) date) Self / Same As unknown) Patient (unknown) (no (unknown) (unknown) Age/Sex: 87 / M (units (unknown) date) Date of Service: unknown) (unknown) (no (unknown) (unknown) Allergies (units (unkn own) date) unknown) (unknown) (no (unknown) (unknown) [place], [place] (units ( unknown) date) [id number] unknown) (unknown) (no (unknown) (unknown) Attending Dr: (units ( unknown) date) Tanvi Carter unknown) D.O. (unknown) (no (unknown) (unknown) BMI 23.6 (units (unkno wn) date) unknown) (unknown) (no (unknown) (unknown) BP 112/78 (units (unkn own) date) unknown) (unknown) (no (unknown) (unknown) BPH (benign (units (un known) date) prostatic unknown) hyperplasia) (unknown) (no (unknown) (unknown) BPH w urinary (units ( unknown) date) obs/LUTS unknown) (unknown) (no (unknown) (unknown) Blood Pressure (units (unknown) date) Location Rt unknown) brachial (unknown) (no (unknown) (unknown) Brother Cancer (units (unknown) date) unknown) (unknown) (no (unknown) (unknown) Confirmed (units (unkn own) date) 12/27/22] unknown) (unknown) (no (unknown) (unknown) : 1935 (units (unknown) date) Acct:[id number] unknown) (unknown) (no (unknown) (unknown) Dept at (units (unkno wn) date) . unknown) (unknown) (no (unknown) (unknown) Diet and (units (unkno wn) date) Exercise unknown) (unknown) (no (unknown) (unknown) Documented By: (units (unknown) date) Tanvi Carter unknown) D.O. 12/27/22 0800 (unknown) (no (unknown) (unknown) Draft (units (unkno wn) date) unknown) (unknown) (no (unknown) (unknown) Facet (units (unkno wn) date) arthropathy, unknown) lumbar (unknown) (no (unknown) (unknown) Family History (units (unknown) date) (Reviewed unknown) 12/20/22 @ 09:55 by Walker Andrade MD) (unknown) (no (unknown) (unknown) Greater (units (unkno wn) date) trochanteric unknown) bursitis of right hip (unknown) (no (unknown) (unknown) H/O rotator cuff (units (unknown) date) surgery unknown) (unknown) (no (unknown) (unknown) HERE FOR POST (units ( unknown) date) LUMBAR RFA unknown) (unknown) (no (unknown) (unknown) Height 5 ft 10 (units (unknown) date) in unknown) (unknown) (no (unknown) (unknown) Hx of (units (unkno wn) date) appendectomy unknown) (unknown) (no (unknown) (unknown) Hypertension (units (u nknown) date) unknown) (unknown) (no (unknown) (unknown) Intake Clinical (units (unknown) date) Staff unknown) (unknown) (no (unknown) (unknown) Intake Note: (units (u nknown) date) unknown) (unknown) (no (unknown) (unknown) Intake performed (units (unknown) date) by: Rosa Marshall unknown) (unknown) (no (unknown) (unknown) Intake (units (unkno wn) date) unknown) (unknown) (no (unknown) (unknown) Is patient in (units ( unknown) date) pain?: Yes (HERE unknown) FOR POST LUMBAR SPINE) Pain scale (1-10): 7 (unknown) (no (unknown) (unknown) Loc: PAIN (units (unkn own) date) unknown) (unknown) (no (unknown) (unknown) Medical History (units (unknown) date) (Reviewed unknown) 12/20/22 @ 09:55 by Walker Andrade MD) (unknown) (no (unknown) (unknown) Medications (units (un known) date) unknown) (unknown) (no (unknown) (unknown) Oxygen Delivery (units (unknown) date) Method room air unknown) (unknown) (no (unknown) (unknown) PFSH (units (unkno wn) date) unknown) (unknown) (no (unknown) (unknown) Pain Scale (units (unk nown) date) unknown) (unknown) (no (unknown) (unknown) Pain Visit (units (unk nown) date) unknown) (unknown) (no (unknown) (unknown) Patient: (units (unkno wn) date) Sarabjit Chacko unknown) MR#: [id number] (unknown) (no (unknown) (unknown) Position Sitting (units (unknown) date) unknown) (unknown) (no (unknown) (unknown) Pulse 65 (units (unkno wn) date) unknown) (unknown) (no (unknown) (unknown) Pulse Oximetry (units (unknown) date) (%) 99 unknown) (unknown) (no (unknown) (unknown) Pulse Source (units (u nknown) date) Monitor unknown) (unknown) (no (unknown) (unknown) Reason For Visit (units (unknown) date) unknown) (unknown) (no (unknown) (unknown) Rotator cuff (units (u nknown) date) (capsule) sprain unknown) (unknown) (no (unknown) (unknown) Scoliosis (units (unkn own) date) unknown) (unknown) (no (unknown) (unknown) Signed By: (units (unk nown) date) unknown) (unknown) (no (unknown) (unknown) Smoking Status: (units (unknown) date) Never smoker unknown) (unknown) (no (unknown) (unknown) Social History (units (unknown) date) unknown) (unknown) (no (unknown) (unknown) 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 (unknown) (no (unknown) (unknown) Sulfa (units (unkno wn) date) (Sulfonamide unknown) Antibiotics) Allergy (Verified 12/27/22 08:01) (unknown) (no (unknown) (unknown) Surgical History (units (unknown) date) (Reviewed unknown) 12/20/22 @ 09:55 by Walker Andrade MD) (unknown) (no (unknown) (unknown) Temp 97.8 F (units (un known) date) unknown) (unknown) (no (unknown) (unknown) Temp Source (units (un known) date) Temporal Artery unknown) Scan (unknown) (no (unknown) (unknown) [facility] ([facility] ([facility]) date[facility] unknown) (unknown) (no (unknown) (unknown) This note may (units ( unknown) date) have been all or unknown) partially generated using voice recognition (unknown) (no (unknown) (unknown) Tobacco + (units (unkn own) date) Substance Use unknown) (unknown) (no (unknown) (unknown) Tobacco Status (units (unknown) date) unknown) (unknown) (no (unknown) (unknown) Visit Reasons: (units (unknown) date) RFA Follow Up, unknown) POST LUMBAR INJECTION (unknown) (no (unknown) (unknown) Vitals (units (unkno wn) date) unknown) (unknown) (no (unknown) (unknown) Weight 165 lb (units ( unknown) date) unknown) (unknown) (no (unknown) (unknown) alcohol intake: (units (unknown) date) current unknown) (unknown) (no (unknown) (unknown) alfuzosin 10 mg (units (unknown) date) tablet,extended unknown) release 24 hr (Uroxatral) 10 mg PO DAILY #90 (unknown) (no (unknown) (unknown) aspirin 81 mg (units ( unknown) date) tablet,delayed unknown) release (Adult Aspirin Regimen) 81 mg PO DAILY (unknown) (no (unknown) (unknown) caffeine: Yes (units ( unknown) date) unknown) (unknown) (no (unknown) (unknown) fexofenadine 180 (units (unknown) date) mg tablet unknown) (Ann Allergy) 180 mg PO DAILY 10/04/20 [History (unknown) (no (unknown) (unknown) finasteride 5 mg (units (unknown) date) tablet 5 mg PO unknown) DAILY 12/27/22 [History Confirmed 12/27/22] (unknown) (no (unknown) (unknown) have occurred. (units (unknown) date) If there are any unknown) questions, please contact the Medical Records (unknown) (no (unknown) (unknown) magnesium 250 mg (units (unknown) date) tablet 250 mg PO unknown) DAILY 10/29/20 [History Confirmed 12/27/22] (unknown) (no (unknown) (unknown) marital status: (units (unknown) date) unknown) (unknown) (no (unknown) (unknown) may occur. (units (unk nown) date) Occasional unknown) wrong-word or 'sound-alike' substitutions may have (unknown) (no (unknown) (unknown) number of (units (unkn own) date) children: 0 unknown) (unknown) (no (unknown) (unknown) occurred due to (units (unknown) date) the inherent unknown) limitations of voice recognition software. Please (unknown) (no (unknown) (unknown) read the note (units ( unknown) date) carefully and unknown) recognize, using context, where these substitutions (unknown) (no (unknown) (unknown) software. (units (unkn own) date) Although every unknown) effort is made to edit content, interior design professional errors (unknown) (no (unknown) (unknown) tabs 12/20/22 (units ( unknown) date) [Rx Confirmed unknown) 12/27/22] (unknown) (no (unknown) (unknown) tramadol 50 mg (units (unknown) date) tablet 50 mg PO unknown) BEDTIME PRN pain #42 tabs 09/06/22 [Rx Confirmed Result panel 7 (unknown) (no (unknown) (unknown) (no value) (units (unk nown) date) unknown) (unknown) (no (unknown) (unknown) 12/27/22 (units (unkno wn) date) unknown) (unknown) (no (unknown) (unknown) 12/27/22] (units (unkn own) date) unknown) (unknown) (no (unknown) (unknown) 08:07 (units (unkno wn) date) unknown) (unknown) (no (unknown) (unknown) 10/04/20 [History (units (unknown) date) Confirmed 12/27/22] unknown) (unknown) (no (unknown) (unknown) [id number] (units (unkno wn) date) unknown) (unknown) (no (unknown) (unknown) Accompanied by: (units (unknown) date) Self / Same As unknown) Patient (unknown) (no (unknown) (unknown) Age/Sex: 87 / M (units (unknown) date) Date of Service: unknown) (unknown) (no (unknown) (unknown) All other systems (units (unknown) date) reviewed and are unknown) negative except as noted in HPI. (unknown) (no (unknown) (unknown) Allergies (units (unkn own) date) unknown) (unknown) (no (unknown) (unknown) [place] [id number] (unit s (unknown) date) unknown) (unknown) (no (unknown) (unknown) Assessment + Plan (units (unknown) date) unknown) (unknown) (no (unknown) (unknown) Attending Dr: (units ( unknown) date) Tanvi Carter D.O. unknown) (unknown) (no (unknown) (unknown) BMI 23.6 (units (unkno wn) date) unknown) (unknown) (no (unknown) (unknown) BP 112/78 (units (unkn own) date) unknown) (unknown) (no (unknown) (unknown) BPH (benign (units (un known) date) prostatic unknown) hyperplasia) (unknown) (no (unknown) (unknown) BPH w urinary (units ( unknown) date) obs/LUTS unknown) (unknown) (no (unknown) (unknown) Blood Pressure (units (unknown) date) Location Rt brachial unknown) (unknown) (no (unknown) (unknown) Brother Cancer (units (unknown) date) unknown) (unknown) (no (unknown) (unknown) Chief Complaint (units (unknown) date) unknown) (unknown) (no (unknown) (unknown) Chief Complaint: (units (unknown) date) Follow-up L4-L5 and unknown) S1 medial branch RFA 11/ (unknown) (no (unknown) (unknown) Confirmed 12/27/22] (unit s (unknown) date) unknown) (unknown) (no (unknown) (unknown) : 1935 (units (unknown) date) Acct:[id number] unknown) (unknown) (no (unknown) (unknown) DTR's symmetric. (units (unknown) date) unknown) (unknown) (no (unknown) (unknown) Denies recent (units ( unknown) date) trauma, fever or unknown) weight loss of unknown origin, immunocompromise (unknown) (no (unknown) (unknown) Dept at (units (unkno wn) date) . unknown) (unknown) (no (unknown) (unknown) Diet and Exercise (units (unknown) date) unknown) (unknown) (no (unknown) (unknown) Documented By: (units (unknown) date) Tanvi Carter D.O. unknown) 12/27/22 0800 (unknown) (no (unknown) (unknown) Draft (units (unkno wn) date) unknown) (unknown) (no (unknown) (unknown) Endorses BPH, (units ( unknown) date) scoliosis, gait unknown) instability, low back pain chronic progressive (unknown) (no (unknown) (unknown) Exam Narrative (units (unknown) date) unknown) (unknown) (no (unknown) (unknown) Exam Narrative: (units (unknown) date) unknown) (unknown) (no (unknown) (unknown) Exam (units (unkno wn) date) unknown) (unknown) (no (unknown) (unknown) Facet arthropathy, (units (unknown) date) lumbar unknown) (unknown) (no (unknown) (unknown) Family History (units (unknown) date) (Reviewed 12/27/22 @ unknown) 08:40 by Tanvi Carter DO) (unknown) (no (unknown) (unknown) Gait: Full (units (unk now) date) weightbearing. No unknown) assistive device. Stooped Gait Posture due to (unknown) (no (unknown) (unknown) General: The (units (u nknown) date) patient is in no unknown) obvious distress. Normal affect. Fully (unknown) (no (unknown) (unknown) Greater (units (unkno wn) date) trochanteric unknown) bursitis of right hip (unknown) (no (unknown) (unknown) H/O rotator cuff (units (unknown) date) surgery unknown) (unknown) (no (unknown) (unknown) HERE FOR POST (units ( unknown) date) LUMBAR RFA unknown) (unknown) (no (unknown) (unknown) HPI (units (unkno wn) date) unknown) (unknown) (no (unknown) (unknown) Height 5 ft 10 in (units (unknown) date) unknown) (unknown) (no (unknown) (unknown) Hx of appendectomy (units (unknown) date) unknown) (unknown) (no (unknown) (unknown) Hypertension (units (u nknown) date) unknown) (unknown) (no (unknown) (unknown) Intake Clinical (units (unknown) date) Staff unknown) (unknown) (no (unknown) (unknown) Intake Note: (units (u nknown) date) unknown) (unknown) (no (unknown) (unknown) Intake performed (units (unknown) date) by: Rosa Marshall unknown) (unknown) (no (unknown) (unknown) Intake (units (unkno wn) date) unknown) (unknown) (no (unknown) (unknown) Is patient in (units ( unknown) date) pain?: Yes (HERE FOR unknown) POST LUMBAR SPINE) Pain scale (1-10): 7 (unknown) (no (unknown) (unknown) Left Lower (units (unk nown) date) Extremity: No edema, unknown) joint effusion or atrophy. tenderness over the (unknown) (no (unknown) (unknown) Left Upper (units (unk nown) date) Extremity: Left unknown) upper extremity exam shows grossly normal alignment, (unknown) (no (unknown) (unknown) Loc: PAIN (units (unkn own) date) unknown) (unknown) (no (unknown) (unknown) MSK: System (units (un known) date) reviewed and no unknown) additional complaints, except as documented. (unknown) (no (unknown) (unknown) Medical History (units (unknown) date) (Reviewed 12/27/22 @ unknown) 08:40 by Tanvi Carter DO) (unknown) (no (unknown) (unknown) Medications (units (un known) date) unknown) (unknown) (no (unknown) (unknown) Medications: (units (u nknown) date) unknown) (unknown) (no (unknown) (unknown) Neuro: System (units ( unknown) date) reviewed and no unknown) additional complaints, except as documented. (unknown) (no (unknown) (unknown) Neurologic: (units (un known) date) Sensation is grossly unknown) intact to light touch throughout the upper and (unknown) (no (unknown) (unknown) New (units (unkno wn) date) unknown) (unknown) (no (unknown) (unknown) Orders: (units (unkno wn) date) unknown) (unknown) (no (unknown) (unknown) Oxygen Delivery (units (unknown) date) Method room air unknown) (unknown) (no (unknown) (unknown) PFSH (units (unkno wn) date) unknown) (unknown) (no (unknown) (unknown) Pain Scale (units (unk nown) date) unknown) (unknown) (no (unknown) (unknown) Pain Visit (units (unk nown) date) unknown) (unknown) (no (unknown) (unknown) Patient: (units (unkno wn) date) Sarabjit Chacko MR#: unknown) M000 (unknown) (no (unknown) (unknown) Position Sitting (units (unknown) date) unknown) (unknown) (no (unknown) (unknown) Pulse 65 (units (unkno wn) date) unknown) (unknown) (no (unknown) (unknown) Pulse Oximetry (%) (units (unknown) date) 99 unknown) (unknown) (no (unknown) (unknown) Pulse Source (units (u nknown) date) Monitor unknown) (unknown) (no (unknown) (unknown) ROS Narrative (units ( unknown) date) unknown) (unknown) (no (unknown) (unknown) ROS Narrative: (units (unknown) date) unknown) (unknown) (no (unknown) (unknown) ROS (units (unkno wn) date) unknown) (unknown) (no (unknown) (unknown) Reason For Visit (units (unknown) date) unknown) (unknown) (no (unknown) (unknown) Referral Physical (units (unknown) date) Therapy M41.9 - unknown) Scoliosis, unspecified, M47.816 - Spondylosis (unknown) (no (unknown) (unknown) Referrals (units (unkn own) date) unknown) (unknown) (no (unknown) (unknown) Right Lower (units (un known) date) Extremity: No edema, unknown) effusion or atrophy. tenderness over the (unknown) (no (unknown) (unknown) Right Upper (units (un known) date) Extremity: Right unknown) upper extremity exam shows grossly normal (unknown) (no (unknown) (unknown) Rotator cuff (units (u nknown) date) (capsule) sprain unknown) (unknown) (no (unknown) (unknown) Scoliosis (units (unkn own) date) unknown) (unknown) (no (unknown) (unknown) Signed By: (units (unk nown) date) unknown) (unknown) (no (unknown) (unknown) Skin: No (units (unkno wn) date) significant skin unknown) lesions are noted. (unknown) (no (unknown) (unknown) Smoking Status: (units (unknown) date) Never smoker unknown) (unknown) (no (unknown) (unknown) Social History (units (unknown) date) unknown) (unknown) (no (unknown) (unknown) Spinal stenosis of (units (unknown) date) lumbar region with unknown) radiculopathy (unknown) (no (unknown) (unknown) Spine: Cervical (units (unknown) date) spine ROM unknown) functional. Lumbar spine ROM was reduced in all (unknown) (no (unknown) (unknown) Sulfa (Sulfonamide (units (unknown) date) Antibiotics) Allergy unknown) (Verified 12/27/22 08:01) (unknown) (no (unknown) (unknown) Surgical History (units (unknown) date) (Reviewed 12/27/22 @ unknown) 08:40 by Tanvi Carter DO) (unknown) (no (unknown) (unknown) Temp 97.8 F (units (un known) date) unknown) (unknown) (no (unknown) (unknown) Temp Source (units (un known) date) Temporal Artery Scan unknown) (unknown) (no (unknown) (unknown) [facility] (unit s (unknown) date) Management unknown) (unknown) (no (unknown) (unknown) This note may have (units (unknown) date) been all or unknown) partially generated using voice recognition (unknown) (no (unknown) (unknown) Tobacco + Substance (unit s (unknown) date) Use unknown) (unknown) (no (unknown) (unknown) Tobacco Status (units (unknown) date) unknown) (unknown) (no (unknown) (unknown) Visit Reasons: POST (unit s (unknown) date) LUMBAR INJECTION, unknown) RFA Follow Up (unknown) (no (unknown) (unknown) Vitals (units (unkno wn) date) unknown) (unknown) (no (unknown) (unknown) Weight 165 lb (units ( unknown) date) unknown) (unknown) (no (unknown) (unknown) alcohol intake: (units (unknown) date) current unknown) (unknown) (no (unknown) (unknown) alfuzosin 10 mg (units (unknown) date) tablet,extended unknown) release 24 hr (Uroxatral) 10 mg PO DAILY #90 (unknown) (no (unknown) (unknown) alignment, range of (unit s (unknown) date) motion, strength and unknown) stability with no swelling, atrophy or (unknown) (no (unknown) (unknown) aspirin 81 mg (units ( unknown) date) tablet,delayed unknown) release (Adult Aspirin Regimen) 81 mg PO DAILY (unknown) (no (unknown) (unknown) axial LBP (units (unkn own) date) unknown) (unknown) (no (unknown) (unknown) caffeine: Yes (units ( unknown) date) unknown) (unknown) (no (unknown) (unknown) effusion. (units (unkn own) date) unknown) (unknown) (no (unknown) (unknown) fexofenadine 180 mg (unit s (unknown) date) tablet (Ann unknown) Allergy) 180 mg PO DAILY 10/04/20 [History (unknown) (no (unknown) (unknown) finasteride 5 mg (units (unknown) date) tablet 5 mg PO DAILY unknown) 12/27/22 [History Confirmed 12/27/22] (unknown) (no (unknown) (unknown) greater (units (unkno wn) date) trochanteric region unknown) (unknown) (no (unknown) (unknown) greater (units (unkno wn) date) trochanteric region. unknown) (unknown) (no (unknown) (unknown) have occurred. If (units (unknown) date) there are any unknown) questions, please contact the Medical Records (unknown) (no (unknown) (unknown) increased tenderness (unit s (unknown) date) with axial loading unknown) and extension based maneuvers tenderness (unknown) (no (unknown) (unknown) intravenous drug (units (unknown) date) use, sustained unknown) glucocorticoid use, osteoporosis, or a focal (unknown) (no (unknown) (unknown) lower extremities. (units (unknown) date) motor 5/5 all LE unknown) muscle groups. Coordination appears normal. (unknown) (no (unknown) (unknown) lumbar region (units ( unknown) date) without neurogenic unknown) claudication, M54.16 - Radiculopathy, lumbar (unknown) (no (unknown) (unknown) magnesium 250 mg (units (unknown) date) tablet 250 mg PO unknown) DAILY 10/29/20 [History Confirmed 12/27/22] (unknown) (no (unknown) (unknown) marital status: (units (unknown) date) unknown) (unknown) (no (unknown) (unknown) may occur. (units (unk nown) date) Occasional unknown) wrong-word or 'sound-alike' substitutions may have (unknown) (no (unknown) (unknown) meloxicam 15 mg PO (units (unknown) date) DAILY 30 tabs 2RF unknown) (unknown) (no (unknown) (unknown) meloxicam 15 mg (units (unknown) date) tablet 15 mg PO unknown) DAILY #30 tabs 12/27/22 [Rx Confirmed 12/27/22] (unknown) (no (unknown) (unknown) neurological (units (u nknown) date) deficit with unknown) progressive or disabling symptoms. (unknown) (no (unknown) (unknown) number of children: (unit s (unknown) date) 0 unknown) (unknown) (no (unknown) (unknown) occurred due to the (unit s (unknown) date) inherent limitations unknown) of voice recognition software. Please (unknown) (no (unknown) (unknown) or (units (unkno wn) date) immunosuppressive unknown) therapy, previous or current cancer diagnosis, history of (unknown) (no (unknown) (unknown) oriented. (units (unkn own) date) unknown) (unknown) (no (unknown) (unknown) planes. On (units (unk nown) date) palpation, there is unknown) tenderness over the spinous processes. With (unknown) (no (unknown) (unknown) provocative (units (unk nown) date) maneuvers including unknown) sacra shear test as well as pelvic obliquity are (unknown) (no (unknown) (unknown) range of motion, (units (unknown) date) strength and unknown) stability with no swelling, atrophy or effusion. (unknown) (no (unknown) (unknown) read the note (units ( unknown) date) carefully and unknown) recognize, using context, where these substitutions (unknown) (no (unknown) (unknown) region (units (unkno wn) date) unknown) (unknown) (no (unknown) (unknown) software. Although (units (unknown) date) every effort is made unknown) to edit content, interior design professional errors (unknown) (no (unknown) (unknown) tabs 12/20/22 [Rx (units (unknown) date) Confirmed 12/27/22] unknown) (unknown) (no (unknown) (unknown) to palpation on (units (unknown) date) paraspinals.straight unknown) leg raising negative bilaterally. Sacral (unknown) (no (unknown) (unknown) tramadol 50 mg (units (unknown) date) tablet 50 mg PO unknown) BEDTIME PRN pain #42 tabs 09/06/22 [Rx Confirmed (unknown) (no (unknown) (unknown) within normal (units ( unknown) date) limits. unknown) (unknown) (no (unknown) (unknown) without myelopathy (units (unknown) date) or radiculopathy, unknown) lumbar region, M48.061 - Spinal stenosis, Result panel 8 (unknown) (no (unknown) (unknown) (no value) (units (unk nown) date) unknown) (unknown) (no (unknown) (unknown) (1) Scoliosis: (units (unknown) date) unknown) (unknown) (no (unknown) (unknown) (2) Facet (units (unkn own) date) arthropathy, lumbar: unknown) (unknown) (no (unknown) (unknown) (3) Greater (units (un known) date) trochanteric unknown) bursitis of right hip: (unknown) (no (unknown) (unknown) (4) Spinal stenosis (unit s (unknown) date) of lumbar region unknown) with radiculopathy: (unknown) (no (unknown) (unknown) (5) Gait (units (unkno wn) date) instability: unknown) (unknown) (no (unknown) (unknown) 12/27/22 0846 (units ( unknown) date) unknown) (unknown) (no (unknown) (unknown) 12/27/22 (units (unkno wn) date) unknown) (unknown) (no (unknown) (unknown) 12/27/22] (units (unkn own) date) unknown) (unknown) (no (unknown) (unknown) 08:07 (units (unkno wn) date) unknown) (unknown) (no (unknown) (unknown) 1. Convex left (units (unknown) date) scoliosis. unknown) (unknown) (no (unknown) (unknown) 09/19/2022. We did (units (unknown) date) discuss his current unknown) axial low back pain with associated (unknown) (no (unknown) (unknown) 10/04/20 [History (units (unknown) date) Confirmed 12/27/22] unknown) (unknown) (no (unknown) (unknown) 2. 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 (unknown) (no (unknown) (unknown) 3. 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 unknown) (unknown) (no (unknown) (unknown) [id number] (units (unkno wn) date) unknown) (unknown) (no (unknown) (unknown) 4. No severe (units (u nknown) date) central canal unknown) narrowing. (unknown) (no (unknown) (unknown) 5. No severe neural (unit s (unknown) date) foraminal narrowing. unknown) (unknown) (no (unknown) (unknown) 6. No neural (units (u nknown) date) compression. unknown) (unknown) (no (unknown) (unknown) 7. L3-L4, L4-L5 and (unit s (unknown) date) L5-S1 disc annulus unknown) fissures. (unknown) (no (unknown) (unknown) 7:14 (units (unkno wn) date) unknown) (unknown) (no (unknown) (unknown) ACCESSION#: (units (un known) date) [id number] EXAM unknown) DATE: 03/29/2021 (unknown) (no (unknown) (unknown) Accompanied by: (units (unknown) date) Self / Same As unknown) Patient (unknown) (no (unknown) (unknown) After lengthy (units ( unknown) date) discussion we have unknown) elected to proceed with the above-stated (unknown) (no (unknown) (unknown) Age/Sex: 87 / M (units (unknown) date) Date of Service: unknown) (unknown) (no (unknown) (unknown) All other systems (units (unknown) date) reviewed and are unknown) negative except as noted in HPI. (unknown) (no (unknown) (unknown) Allergies (units (unkn own) date) unknown) (unknown) (no (unknown) (unknown) [place] [address] (unit s (unknown) date) unknown) (unknown) (no (unknown) (unknown) Approved by: (units (u nknown) date) Gema Mendez, unknown) , PhD on 03/29/2021 at 10:23 (unknown) (no (unknown) (unknown) Assessment + Plan (units (unknown) date) unknown) (unknown) (no (unknown) (unknown) Attending Dr: (units ( unknown) date) Tanvi Carter D.O. unknown) (unknown) (no (unknown) (unknown) BMI 23.6 (units (unkno wn) date) unknown) (unknown) (no (unknown) (unknown) BP 112/78 (units (unkn own) date) unknown) (unknown) (no (unknown) (unknown) BPH (benign (units (un known) date) prostatic unknown) hyperplasia) (unknown) (no (unknown) (unknown) BPH w urinary (units ( unknown) date) obs/LUTS unknown) (unknown) (no (unknown) (unknown) Blood Pressure (units (unknown) date) Location Rt brachial unknown) (unknown) (no (unknown) (unknown) Brother Cancer (units (unknown) date) unknown) (unknown) (no (unknown) (unknown) CONTRAST MEDIA: (units (unknown) date) STATION ID: [id number] unknown) (unknown) (no (unknown) (unknown) Chief Complaint (units (unknown) date) unknown) (unknown) (no (unknown) (unknown) Chief Complaint: (units (unknown) date) Follow-up L4-L5 and unknown) S1 medial branch RFA 09/19/2012/08/2021 (unknown) (no (unknown) (unknown) Confirmed 12/27/22] (unit s (unknown) date) unknown) (unknown) (no (unknown) (unknown) : 1935 (units (unknown) date) Acct:[id number] unknown) (unknown) (no (unknown) (unknown) DTR's symmetric. (units (unknown) date) unknown) (unknown) (no (unknown) (unknown) Denies recent (units ( unknown) date) trauma, fever or unknown) weight loss of unknown origin, immunocompromise (unknown) (no (unknown) (unknown) Dept at (units (unkno wn) date) . unknown) (unknown) (no (unknown) (unknown) Details: (units (unkno wn) date) unknown) (unknown) (no (unknown) (unknown) Dictated by: (units (u nknown) date) Gema Mendez, unknown) , PhD on 03/29/2021 at 9:57 (unknown) (no (unknown) (unknown) Diet and Exercise (units (unknown) date) unknown) (unknown) (no (unknown) (unknown) Documented By: (units (unknown) date) Tanvi Carter D.O. unknown) 12/27/22 0800 (unknown) (no (unknown) (unknown) Endorses BPH, (units ( unknown) date) scoliosis, gait unknown) instability, low back pain chronic progressive (unknown) (no (unknown) (unknown) Exam Narrative (units (unknown) date) unknown) (unknown) (no (unknown) (unknown) Exam Narrative: (units (unknown) date) unknown) (unknown) (no (unknown) (unknown) Exam (units (unkno wn) date) unknown) (unknown) (no (unknown) (unknown) FLUORO TIME: (units (u nknown) date) unknown) (unknown) (no (unknown) (unknown) Facet arthropathy, (units (unknown) date) lumbar unknown) (unknown) (no (unknown) (unknown) Family History (units (unknown) date) (Reviewed 12/27/22 @ unknown) 08:42 by Tanvi Carter DO) (unknown) (no (unknown) (unknown) Gait instability (units (unknown) date) unknown) (unknown) (no (unknown) (unknown) Gait: Full (units (unk nown) date) weightbearing. No unknown) assistive device. Stooped Gait Posture due to (unknown) (no (unknown) (unknown) General: The (units (u nknown) date) patient is in no unknown) obvious distress. Normal affect. Fully (unknown) (no (unknown) (unknown) Greater (units (unkno wn) date) trochanteric unknown) bursitis of right hip (unknown) (no (unknown) (unknown) H/O rotator cuff (units (unknown) date) surgery unknown) (unknown) (no (unknown) (unknown) HERE FOR POST (units ( unknown) date) LUMBAR RFA unknown) (unknown) (no (unknown) (unknown) HPI (units (unkno wn) date) unknown) (unknown) (no (unknown) (unknown) Height 5 ft 10 in (units (unknown) date) unknown) (unknown) (no (unknown) (unknown) Hx of appendectomy (units (unknown) date) unknown) (unknown) (no (unknown) (unknown) Hypertension (units (u nknown) date) unknown) (unknown) (no (unknown) (unknown) I would like to (units (unknown) date) follow up with him unknown) after the above-stated medication trial as (unknown) (no (unknown) (unknown) IMPRESSION: (units (un known) date) unknown) (unknown) (no (unknown) (unknown) Intake Clinical (units (unknown) date) Staff unknown) (unknown) (no (unknown) (unknown) Intake Note: (units (u nknown) date) unknown) (unknown) (no (unknown) (unknown) Intake performed (units (unknown) date) by: Rosa Marshall unknown) (unknown) (no (unknown) (unknown) Intake (units (unkno wn) date) unknown) (unknown) (no (unknown) (unknown) Is patient in (units ( unknown) date) pain?: Yes (HERE FOR unknown) POST LUMBAR SPINE) Pain scale (1-10): 7 (unknown) (no (unknown) (unknown) L2-L3: Loss of disc (unit s (unknown) date) signal. Mild unknown) bilateral facet hypertrophy. Mild narrowing of (unknown) (no (unknown) (unknown) L3-L4: Loss of disc (unit s (unknown) date) signal and height. unknown) Mild, diffuse disc bulge. (unknown) (no (unknown) (unknown) L4-L5: Loss of disc (unit s (unknown) date) signal. Mild, unknown) diffuse disc bulge. Moderate bilateral facet (unknown) (no (unknown) (unknown) L5-S1: Loss of disc (unit s (unknown) date) signal and height. unknown) Mild bilateral facet hypertrophy. No (unknown) (no (unknown) (unknown) Left Lower (units (unk nown) date) Extremity: No edema, unknown) joint effusion or atrophy. tenderness over the (unknown) (no (unknown) (unknown) Left Upper (units (unk nown) date) Extremity: Left unknown) upper extremity exam shows grossly normal alignment, (unknown) (no (unknown) (unknown) Loc: PAIN (units (unkn own) date) unknown) (unknown) (no (unknown) (unknown) Lumbar x-rays taken (unit s (unknown) date) in January at [facility] unknown) do reveal convex left scoliosis with (unknown) (no (unknown) (unknown) MODALITY: MR (units (u nknown) date) PATIENT TYPE: Out unknown) (unknown) (no (unknown) (unknown) (units (unknown) date) ACCOUNT #: unknown) [id number] (unknown) (no (unknown) (unknown) MSK: System (units (un known) date) reviewed and no unknown) additional complaints, except as documented. (unknown) (no (unknown) (unknown) Sarabjit and I (units (u nknown) date) discussed at length unknown) his underlying pathology we discussed his (unknown) (no (unknown) (unknown) Sarabjit presents (units (unknown) date) today status post unknown) bilateral L4-L5 and S1 medial branch RFA (unknown) (no (unknown) (unknown) Medical History (units (unknown) date) (Updated 12/27/22 @ unknown) 08:43 by Tanvi Carter DO) (unknown) (no (unknown) (unknown) Medications (units (un known) date) unknown) (unknown) (no (unknown) (unknown) Medications: (units (u nknown) date) unknown) (unknown) (no (unknown) (unknown) Mild (units (unkno wn) date) unknown) (unknown) (no (unknown) (unknown) [id number]-ozlrtsqk (units (unknown) date) unknown) (unknown) (no (unknown) (unknown) Neuro: System (units ( unknown) date) reviewed and no unknown) additional complaints, except as documented. (unknown) (no (unknown) (unknown) Neurologic: (units (un known) date) Sensation is grossly unknown) intact to light touch throughout the upper and (unknown) (no (unknown) (unknown) New (units (unkno wn) date) unknown) (unknown) (no (unknown) (unknown) ORD. BUCK: TANVI (units (unknown) date) MADIE [facility]: unknown) (unknown) (no (unknown) (unknown) Objective Data (units (unknown) date) unknown) (unknown) (no (unknown) (unknown) Objective Data: (units (unknown) date) unknown) (unknown) (no (unknown) (unknown) Orders: (units (unkno wn) date) unknown) (unknown) (no (unknown) (unknown) Oxygen Delivery (units (unknown) date) Method room air unknown) (unknown) (no (unknown) (unknown) PATIENT NAME: (units ( unknown) date) SARABJIT CHACKO : unknown) 1935 (unknown) (no (unknown) (unknown) PFSH (units (unkno wn) date) unknown) (unknown) (no (unknown) (unknown) Pain Scale (units (unk nown) date) unknown) (unknown) (no (unknown) (unknown) Pain Visit (units (unk nown) date) unknown) (unknown) (no (unknown) (unknown) Patient: (units (unkno wn) date) Sarabjit Chacko MR#: unknown) M000 (unknown) (no (unknown) (unknown) Plan (units (unkno wn) date) unknown) (unknown) (no (unknown) (unknown) Position Sitting (units (unknown) date) unknown) (unknown) (no (unknown) (unknown) Pulse 65 (units (unkno wn) date) unknown) (unknown) (no (unknown) (unknown) Pulse Oximetry (%) (units (unknown) date) 99 unknown) (unknown) (no (unknown) (unknown) Pulse Source (units (u nknown) date) Monitor unknown) (unknown) (no (unknown) (unknown) Qualifiers: (units (un known) date) unknown) (unknown) (no (unknown) (unknown) ROS Narrative (units ( unknown) date) unknown) (unknown) (no (unknown) (unknown) ROS Narrative: (units (unknown) date) unknown) (unknown) (no (unknown) (unknown) ROS (units (unkno wn) date) unknown) (unknown) (no (unknown) (unknown) Reason For Visit (units (unknown) date) unknown) (unknown) (no (unknown) (unknown) Referral Physical (units (unknown) date) Therapy M41.9 - unknown) Scoliosis, unspecified, M47.816 - Spondylosis (unknown) (no (unknown) (unknown) Referrals (units (unkn own) date) unknown) (unknown) (no (unknown) (unknown) Right Lower (units (un known) date) Extremity: No edema, unknown) effusion or atrophy. tenderness over the (unknown) (no (unknown) (unknown) Right Upper (units (un known) date) Extremity: Right unknown) upper extremity exam shows grossly normal (unknown) (no (unknown) (unknown) Rotator cuff (units (u nknown) date) (capsule) sprain unknown) (unknown) (no (unknown) (unknown) Scoliosis type: (units (unknown) date) idiopathic unknown) Idiopathic scoliosis type: other Spinal (unknown) (no (unknown) (unknown) Scoliosis (units (unkn own) date) unknown) (unknown) (no (unknown) (unknown) Signed By: (units (unk nown) date) <Electronically unknown) signed by Tanvi Carter D.O.> (unknown) (no (unknown) (unknown) Signed (units (unkno wn) date) unknown) (unknown) (no (unknown) (unknown) Skin: No (units (unkno wn) date) significant skin unknown) lesions are noted. (unknown) (no (unknown) (unknown) Smoking Status: (units (unknown) date) Never smoker unknown) (unknown) (no (unknown) (unknown) Social History (units (unknown) date) unknown) (unknown) (no (unknown) (unknown) Spinal stenosis of (units (unknown) date) lumbar region with unknown) radiculopathy (unknown) (no (unknown) (unknown) Spine: Cervical (units (unknown) date) spine ROM unknown) functional. Lumbar spine ROM was reduced in all (unknown) (no (unknown) (unknown) Status: Acute (units ( unknown) date) unknown) (unknown) (no (unknown) (unknown) Sulfa (Sulfonamide (units (unknown) date) Antibiotics) Allergy unknown) (Verified 12/27/22 08:01) (unknown) (no (unknown) (unknown) Surgical History (units (unknown) date) (Reviewed 12/27/22 @ unknown) 08:42 by Tanvi Carter DO) (unknown) (no (unknown) (unknown) Temp 97.8 F (units (un known) date) unknown) (unknown) (no (unknown) (unknown) Temp Source (units (un known) date) Temporal Artery Scan unknown) (unknown) (no (unknown) (unknown) [facility] (unit s (unknown) date) Management unknown) (unknown) (no (unknown) (unknown) This note may have (units (unknown) date) been all or unknown) partially generated using voice recognition (unknown) (no (unknown) (unknown) Tobacco + Substance (unit s (unknown) date) Use unknown) (unknown) (no (unknown) (unknown) Tobacco Status (units (unknown) date) unknown) (unknown) (no (unknown) (unknown) Visit Reasons: POST (unit s (unknown) date) LUMBAR INJECTION, unknown) RFA Follow Up (unknown) (no (unknown) (unknown) Vitals (units (unkno wn) date) unknown) (unknown) (no (unknown) (unknown) Weight 165 lb (units ( unknown) date) unknown) (unknown) (no (unknown) (unknown) ability is in (units ( unknown) date) agreement with the unknown) above-stated plan. (unknown) (no (unknown) (unknown) alcohol intake: (units (unknown) date) current unknown) (unknown) (no (unknown) (unknown) alfuzosin 10 mg (units (unknown) date) tablet,extended unknown) release 24 hr (Uroxatral) 10 mg PO DAILY #90 (unknown) (no (unknown) (unknown) alignment, range of (unit s (unknown) date) motion, strength and unknown) stability with no swelling, atrophy or (unknown) (no (unknown) (unknown) and associated (units (unknown) date) scoliosis with. unknown) (unknown) (no (unknown) (unknown) annulus. (units (unkno wn) date) unknown) (unknown) (no (unknown) (unknown) anterior (units (unkno wn) date) unknown) (unknown) (no (unknown) (unknown) approximately 3 (units (unknown) date) days after the unknown) procedure. He reports he did try to use his (unknown) (no (unknown) (unknown) as well as cramps (units (unknown) date) involving the lower unknown) extremities. He reports this occurred (unknown) (no (unknown) (unknown) aspirin 81 mg (units ( unknown) date) tablet,delayed unknown) release (Adult Aspirin Regimen) 81 mg PO DAILY (unknown) (no (unknown) (unknown) associated rotatory (unit s (unknown) date) component most unknown) prominent at the L2-3 3 4 levels with (unknown) (no (unknown) (unknown) axial LBP (units (unkn own) date) unknown) (unknown) (no (unknown) (unknown) axial low back pain (unit s (unknown) date) likely associated unknown) with his multilevel degenerative changes (unknown) (no (unknown) (unknown) ay occur. (units (unkn own) date) Occasional unknown) wrong-word or 'sound-alike' substitutions may have (unknown) (no (unknown) (unknown) bilateral facet (units (unknown) date) hypertrophy. Mild to unknown) moderate narrowing of the central canal. (unknown) (no (unknown) (unknown) bilateral neural (units (unknown) date) foraminal narrowing. unknown) No neural compression. Fissure noted in (unknown) (no (unknown) (unknown) caffeine: Yes (units ( unknown) date) unknown) (unknown) (no (unknown) (unknown) central canal. Mild (unit s (unknown) date) right neural unknown) foraminal narrowing. No neural compression. (unknown) (no (unknown) (unknown) central (units (unkno wn) date) unknown) (unknown) (no (unknown) (unknown) does report (units (un known) date) significant axial unknown) low back pain with spasms involving the low back (unknown) (no (unknown) (unknown) effusion. (units (unkn own) date) unknown) (unknown) (no (unknown) (unknown) feeling the (units (un known) date) above-stated unknown) symptomatology which has become slightly better since (unknown) (no (unknown) (unknown) fexofenadine 180 mg (unit s (unknown) date) tablet (Ann unknown) Allergy) 180 mg PO DAILY 10/04/20 [History (unknown) (no (unknown) (unknown) finasteride 5 mg (units (unknown) date) tablet 5 mg PO DAILY unknown) 12/27/22 [History Confirmed 12/27/22] (unknown) (no (unknown) (unknown) for potassium (units ( unknown) date) supplementation. unknown) (unknown) (no (unknown) (unknown) greater (units (unkno wn) date) trochanteric region unknown) (unknown) (no (unknown) (unknown) greater (units (unkno wn) date) trochanteric region. unknown) (unknown) (no (unknown) (unknown) have occurred. If (units (unknown) date) there are any unknown) questions, please contact the Medical Records (unknown) (no (unknown) (unknown) hypertrophy. Mild (units (unknown) date) to moderate unknown) narrowing of the central canal. Mild right and (unknown) (no (unknown) (unknown) illnesses does (units (unknown) date) report otherwise unknown) feeling well maintain the Covid19 social (unknown) (no (unknown) (unknown) in the annulus. (units (unknown) date) unknown) (unknown) (no (unknown) (unknown) increased tenderness (unit s (unknown) date) with axial loading unknown) and extension based maneuvers tenderness (unknown) (no (unknown) (unknown) instability (units (un known) date) combined with some unknown) gait instability. We discussed the need for core (unknown) (no (unknown) (unknown) intravenous drug (units (unknown) date) use, sustained unknown) glucocorticoid use, osteoporosis, or a focal (unknown) (no (unknown) (unknown) left neural (units (un known) date) foraminal narrowing. unknown) No neural compression. Fissure noted in the (unknown) (no (unknown) (unknown) low back as well as (unit s (unknown) date) his gait being unknown) unstable. He reports no new traumas or (unknown) (no (unknown) (unknown) lower extremities. (units (unknown) date) motor 5/5 all LE unknown) muscle groups. Coordination appears normal. (unknown) (no (unknown) (unknown) lumbar region (units ( unknown) date) without neurogenic unknown) claudication, M54.16 - Radiculopathy, lumbar (unknown) (no (unknown) (unknown) magnesium 250 mg (units (unknown) date) tablet 250 mg PO unknown) DAILY 10/29/20 [History Confirmed 12/27/22] (unknown) (no (unknown) (unknown) marital status: (units (unknown) date) unknown) (unknown) (no (unknown) (unknown) medication trial as (units (unknown) date) well as formal unknown) physical therapy at [facility] in [place]. (unknown) (no (unknown) (unknown) meloxicam 15 mg PO (units (unknown) date) DAILY 30 tabs 2RF unknown) (unknown) (no (unknown) (unknown) meloxicam 15 mg (units (unknown) date) tablet 15 mg PO unknown) DAILY #30 tabs 12/27/22 [Rx Confirmed 12/27/22] (unknown) (no (unknown) (unknown) moderate (units (unkno wn) date) unknown) (unknown) (no (unknown) (unknown) neurological (units (u nknown) date) deficit with unknown) progressive or disabling symptoms. (unknown) (no (unknown) (unknown) noted (units (unkno wn) date) unknown) (unknown) (no (unknown) (unknown) number of children: (unit s (unknown) date) 0 unknown) (unknown) (no (unknown) (unknown) occurred due to the (unit s (unknown) date) inherent limitations unknown) of voice recognition software. Please (unknown) (no (unknown) (unknown) optimizing his (units (unknown) date) outcome. All of his unknown) questions were answered to the best my (unknown) (no (unknown) (unknown) or (units (unkno wn) date) immunosuppressive unknown) therapy, previous or current cancer diagnosis, history of (unknown) (no (unknown) (unknown) oriented. (units (unkn own) date) unknown) (unknown) (no (unknown) (unknown) osteophytic (units (un known) date) complexes throughout unknown) the lumbar spine. Hips well seated without (unknown) (no (unknown) (unknown) performed on (units (u nknown) date) 09/19/2022. He unknown) reports no difficulty with the procedure itself (unknown) (no (unknown) (unknown) planes. On (units (unk nown) date) palpation, there is unknown) tenderness over the spinous processes. With (unknown) (no (unknown) (unknown) posterior annulus. (units (unknown) date) unknown) (unknown) (no (unknown) (unknown) provocative (units (unk nown) date) maneuvers including unknown) sacra shear test as well as pelvic obliquity are (unknown) (no (unknown) (unknown) range of motion, (units (unknown) date) strength and unknown) stability with no swelling, atrophy or effusion. 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 He does report regarding (unknown) (no (unknown) (unknown) scoliosis with his (units (unknown) date) multilevel unknown) lumbosacral spondylosis. We discussed his minimal (unknown) (no (unknown) (unknown) signs of fracture (units (unknown) date) dislocation unknown) (unknown) (no (unknown) (unknown) software. Although (units (unknown) date) every effort is made unknown) to edit content, interior design professional errors m (unknown) (no (unknown) (unknown) stenosis. Mild left (unit s (unknown) date) neural foraminal unknown) narrowing. No neural compression. Fissures (unknown) (no (unknown) (unknown) strengthening with (units (unknown) date) back extension unknown) biased program. Additionally I do believe he (unknown) (no (unknown) (unknown) tabs 12/20/22 [Rx (units (unknown) date) Confirmed 12/27/22] unknown) (unknown) (no (unknown) (unknown) the cramps he uses (units (unknown) date) a magnesium calcium unknown) supplement as well as his daily vitamin (unknown) (no (unknown) (unknown) the procedure he (units (unknown) date) reports feeling unknown) unstable. He reports both feeling weak in his (unknown) (no (unknown) (unknown) the (units (unkno wn) date) unknown) (unknown) (no (unknown) (unknown) to palpation on (units (unknown) date) paraspinals.straight unknown) leg raising negative bilaterally. Sacral (unknown) (no (unknown) (unknown) topical icy Hot (units (unknown) date) roll on to try to unknown) find some relief. He reports in addition to (unknown) (no (unknown) (unknown) tramadol 50 mg (units (unknown) date) tablet 50 mg PO unknown) BEDTIME PRN pain #42 tabs 09/06/22 [Rx Confirmed (unknown) (no (unknown) (unknown) tramadol but did (units (unknown) date) not find this overly unknown) effective. He reports he has been using (unknown) (no (unknown) (unknown) well as the formal (units (unknown) date) physical therapy to unknown) make sure that we are monitoring and (unknown) (no (unknown) (unknown) within normal (units ( unknown) date) limits. unknown) (unknown) (no (unknown) (unknown) without myelopathy (units (unknown) date) or radiculopathy, unknown) lumbar region, M48.061 - Spinal stenosis, (unknown) (no (unknown) (unknown) would benefit from (units (unknown) date) some low-dose unknown) meloxicam at 15 mg p.o. q.day for his ongoing Social History date description facility 2022-12-20 00:00 Never smoked tobacco (finding) [facility] 2022-12-27 00:00 Never smoked tobacco (finding) [facility] Vital Signs date measurement value units 2022-12-20 00:00 BP_diastolic 65 mmHg 2022-12-20 00:00 BP_systolic 131 mmHg 2022-12-20 00:00 heart_rate 76 /min 2022-12-20 00:00 o2_saturation 100 % 2022-12-20 00:00 respiration_rate 16 /min 2022-12-27 00:00 BMI 23.6 kg/m2 2022-12-27 00:00 BP_diastolic 78 mmHg 2022-12-27 00:00 BP_systolic 112 mmHg 2022-12-27 00:00 heart_rate 65 /min 2022-12-27 00:00 height_metric 177.8 cm 2022-12-27 00:00 height_standard 70 in 2022-12-27 00:00 o2_saturation 99 % 2022-12-27 00:00 temperature_metric 36.56 C 2022-12-27 00:00 temperature_standard 97.8 F 2022-12-27 00:00 weight_metric 74.84 kg 2022-12-27 00:00 weight_standard 164.99 lb
--- NOTE | 2023-01-08 16:46 | ED Physician Documentation ---
PD [facility] HEENT - Stated complaint Stated Complaint: N/V - Chief complaint Chief Complaint: Abd Pain - History obtained from History obtained from: Patient - History of Present Illness Timing - onset: Today Timing - duration: Hours Timing - details: Abrupt onset, Still present Location: Right ear Improves: Other (sitting and rest.) Worsens: Position (he states he started feeling lightheaded with standing and walking today. Denies vertigo/spinning, and does not have any symptoms with head movement while sitting. Lightheaded and some nausea with postural change. No chest pain. No headache. Does have some tinnitus in right ear. Again denies vertigo) Associated symptoms: No: Fever, Congestion, Headache, Cough Similar symptoms before: Has not had sx before (has had vertigo in the past and says this does not feel like that - no spinning/rotational component and not bothered with just head movement.) Recently seen: Not recently seen (denies new medications. He states he had not eaten as yet today.) Review of Systems Constitutional: denies: Fever, Chills Nose: denies: Rhinorrhea / runny nose, Congestion Throat: denies: Sore throat Cardiac: denies: Chest pain / pressure, Palpitations Respiratory: denies: Cough GI: reports: Nausea (when stadning up and walking. he denies feeling off balance, but does feel weak generally with walking/standing.), Vomiting. denies: Abdominal Pain, Diarrhea Musculoskeletal: reports: Extremity pain (he states he has been getting leg muscle cramps during the night often the past few weeks. No pain with walking. No edema nor calf pains. Has not slept well past few nights in particular.). denies: Neck pain, Back pain Neurologic: reports: Near syncope (feeling lightheaded with standing and walking. No symptoms with head movement. Denies vertigo/movement feeling.). denies: Focal weakness, Numbness, Confused, Altered mental status, Headache Endocrine: denies: Weight loss, Weight gain PD PAST MEDICAL HISTORY - Past Medical History Cardiovascular: Hypertension Respiratory: None Neuro: None Endocrine/Autoimmune: None : Benign prostate hypertrophy Musculoskeletal: Chronic back pain - Past Surgical History Past Surgical History: Yes General: Appendectomy Ortho: Rotator cuff repair - Present Medications Home Medications: Ambulatory Orders Medication Instructions Recorded Confirmed Aspirin [Aspir 81] 81 mg PO QPM 07/23/15 04/14/22 Cyclobenzaprine [Flexeril] 10 mg PO TID PRN #20 tablet 04/14/22 HYDROcod/ACETAM 5/325 [[place] 5/325] 1 - 2 tablet PO Q6H PRN #14 tablet 04/14/22 Meclizine HCl [Motion Sickness] 25 mg PO Q6H PRN #30 tablet 01/08/23 Ondansetron Odt [Zofran] 4 mg TL Q6H PRN #10 tablet 01/08/23 tiZANidine [Zanaflex] 4 mg PO QPM PRN #25 tablet 01/08/23 - Allergies Allergies/Adverse Reactions: Allergies Allergy/AdvReac Type Severity Reaction Status Date / Time finasteride Allergy Unknown Verified 01/08/23 15:41 Sulfa (Sulfonamide Allergy Diaphoresis Verified 01/08/23 15:41 Antibiotics) - Social History Does the pt smoke?: No Smoking Status: Never smoker Does the pt drink ETOH?: No Does the pt have substance abuse?: No - Immunizations Immunizations are current?: Yes - POLST Patient has POLST: No PD ED PE NORMAL - Vitals Vital signs reviewed: Yes (normal bp.) - General General: Alert and oriented X 3, No acute distress, Well developed/nourished - HEENT HEENT: PERRL, EOMI (no nystagmus. Head movement does not trigger the nausea nor feeling of dizziness. ), Ears normal (tms appear normal. ), Moist mucous membranes, Pharynx benign - Neck Neck: Supple, no meningeal sign, No adenopathy, No bruit - Cardiac Cardiac: RRR, No murmur - Respiratory Respiratory: Clear bilaterally - Abdomen Abdomen: Soft, Non tender - Derm Derm: Normal color, Warm and dry - Extremities Extremities: Normal ROM s pain, No edema, No calf tenderness / cord, Other (good pulses, color and cap refill in feet/toes. ) - Neuro Neuro: Alert and oriented X 3, vp foundation 2-12 intact, No motor deficit, No sensory def icit, Normal speech Results - Vitals Vitals: Vital Signs - 24 hr 01/08/23 01/08/23 01/08/23 15:41 15:44 17:44 Temperature 36.8 C 36.8 C Heart Rate 63 63 60 Heart Rate [ Sitting] Heart Rate [ Standing] Heart Rate [ Supine] Respiratory 16 16 16 Rate Blood Pressure 162/71 H 162/71 H 160/85 H Blood Pressure [Sitting] Blood Pressure [Standing] Blood Pressure [Supine] O2 Saturation 98 98 100 01/08/23 01/08/23 18:47 19:00 Temperature 36.5 C Heart Rate 62 Heart Rate [ 60 Sitting] Heart Rate [ 68 Standing] Heart Rate [ 62 Supine] Respiratory 16 Rate Blood Pressure 167/83 H Blood Pressure 160/85 H [Sitting] Blood Pressure 170/77 H [Standing] Blood Pressure 167/83 H [Supine] O2 Saturation 100 Oxygen O2 Source Room air - EKG (time done) 17:16 Rate: Rate (enter#) (55) Rhythm: Sinus bradycardia [place]: Normal Intervals: Normal [place] QRS: Normal Ischemia: Normal ST segments. No: ST elevation c/w ischemia, ST depression - Labs Labs: Laboratory Tests 01/08/23 01/08/23 01/08/23 17:00 17:00 17:00 WBC 7.9 RBC 4.62 L Hgb 13.8 L Hct 43.3 MCV 93.7 MCH 29.9 MCHC 31.9 L RDW 14.3 Plt Count 295 MPV 9.5 Neut # (Auto) 6.0 Lymph # (Auto) 1.2 L [place] # (Auto) 0.6 Eos # (Auto) 0.1 Baso # (Auto) 0.0 Absolute Nucleated RBC 0.00 Nucleated RBC % 0.0 Sodium 138 Potassium 4.6 Chloride 104 Carbon Dioxide 24 Anion Gap 10.0 BUN 25 H Creatinine 0.9 Estimated GFR (MDRD) 80 L Glucose 114 H Calcium 10.3 Magnesium Total Bilirubin 0.7 AST 21 ALT 20 Alkaline Phosphatase 68 Total Creatine Kinase Troponin I High Sens Total Protein 7.5 Albumin 3.9 Globulin 3.6 Albumin/Globulin Ratio 1.1 Lipase 33 Urine Color YELLOW Urine Clarity CLEAR Urine pH 6.0 Ur Specific [place] 1.020 Urine Protein NEGATIVE Urine Glucose (UA) NEGATIVE Urine Ketones 15 H Urine Occult Blood NEGATIVE Urine Nitrite NEGATIVE Urine Bilirubin NEGATIVE Urine Urobilinogen 0.2 (NORMAL) Ur Leukocyte Esterase NEGATIVE Ur Microscopic Review NOT INDICATED Urine Culture Comments NOT INDICATED 01/08/23 01/08/23 17:00 17:00 WBC RBC Hgb Hct MCV MCH MCHC RDW Plt Count MPV Neut # (Auto) Lymph # (Auto) [place] # (Auto) Eos # (Auto) Baso # (Auto) Absolute Nucleated RBC Nucleated RBC % Sodium Potassium Chloride Carbon Dioxide Anion Gap BUN Creatinine Estimated GFR (MDRD) Glucose Calcium Magnesium 2.2 Total Bilirubin AST ALT Alkaline Phosphatase Total Creatine Kinase 172 Troponin I High Sens 7.9 Total Protein Albumin Globulin Albumin/Globulin Ratio Lipase Urine Color Urine Clarity Urine pH Ur Specific [place] Urine Protein Urine Glucose (UA) Urine Ketones Urine Occult Blood Urine Nitrite Urine Bilirubin Urine Urobilinogen Ur Leukocyte Esterase Ur Microscopic Review Urine Culture Comments PD Medical Decision Making - ED course Complexity details: reviewed results, re-evaluated patient (he feels better with IV fluid bolus 1 liter. He is standing and walking without symtoms with that and orthostatic vitals are nromal. ), considered differential (he has some tinnitus that is semi-regular. Main symptoms is lightheaded with standing and not vertigo per se. no triggering with head motion. feels badly standing/walking. Okay sitting/rest. No chest pain. ECG and BP are good here. Can check lytes and Hgb, troponin.), d/w patient Reviewed Lab Results: normal CBC so not anemic. Normal chemistry so electrolytes cannot readily expolain nocturnal leg spasms. He does not take statins. Appears to have good cirulation in extremities. Consider muscle spasms to treat with muscle relaxant. no focal weakness and does not have vertigo, so does not seem cerebrovascular. More cardiovascular/near syncope eval. Departure - Departure Disposition: 01 Home, Self Care Clinical Impression: Orthostatic lightheadedness, Nocturnal leg cramps Nausea & vomiting Qualifiers: Vomiting type: unspecified Qualified Code(s): R11.2 - Nausea with vomiting, unspecified Condition: Stable Record reviewed to determine appropriate education?: Yes Instructions: ED Nausea Vomiting Prescriptions: Meclizine HCl [Motion Sickness] 25 mg PO Q6H PRN #30 tablet PRN Reason: Nausea / Vomiting tiZANidine [Zanaflex] 4 mg PO QPM PRN #25 tablet PRN Reason: Spasms Ondansetron Odt [Zofran] 4 mg TL Q6H PRN #10 tablet PRN Reason: Nausea / Vomiting Comments: Your heart rate and blood pressure and basic blood tests are good here. Unclear the cause of the lightheadedness feeling you are having. Some component with the nausea and ringing in the ears do have the sound of a inner ear ear condition even though you are not having the true spinning vertigo symptoms. Be sure to stay well-hydrated. Continue usual medications. There is no signs of more significant cause for lightheadedness such as anemia, electrolyte imbalance, kidney failure, heart attack or abnormal heart rhythm. Use ondansetron/Zofran or meclizine as needed for nausea. Stay well-hydrated regarding the lightheadedness. Easy activity for the next day or 2 until you are sure you are feeling well. Follow-up with your primary care or return to the ER if you are generally having worse symptoms or any new symptoms arise. Regarding your leg cramps at night, you seem to have good circulation in the leg and no swelling and your electrolytes on blood tests are good. We can try a muscle relaxant to take before bedtime and see if that helps reduce his symptoms. If still persisting, then follow-up with your primary care to try other medications. I sent your prescriptions to your preferred pharmacy. Discharge Date/Time: 01/08/23 20:21
[2023-01-08 17:06] LABS: BASOPHILS % (AUTO) 0.5 %; EOSINOPHILS # (AUTO) 0.1 10^3/uL (0.0-0.7); EOSINOPHILS % (AUTO) 1.4 %; HCT - HEMATOCRIT 43.3 % (42.0-52.0); HGB - HEMOGLOBIN 13.8 g/dL (14.0-18.0); LYMPHOCYTES # (AUTO) 1.2 10^3/uL (1.5-3.5); LYMPHOCYTES % (AUTO) 14.8 %; MEAN CORPUSCULAR HEMOGLOBIN 29.9 pg (27.0-31.0); MEAN CORPUSCULAR HGB CONC 31.9 g/dL (32.0-36.0); MEAN CORPUSCULAR VOLUME 93.7 fL (80.0-94.0); MEAN PLATELET VOLUME 9.5 fL (7.4-11.4); MONOCYTES # (AUTO) 0.6 10^3/uL (0.0-1.0); MONOCYTES % (AUTO) 7.4 %; NEUTROPHILS % (AUTO) 75.5 %; PLT - PLATELET COUNT 295 10^3/uL (130-450); RED BLOOD COUNT 4.62 10^6/uL (4.70-6.10); RED CELL DISTRIBUTION WIDTH 14.3 % (12.0-15.0); WHITE BLOOD COUNT 7.9 x10^3/uL (4.8-10.8)
[2023-01-08] MEDS ORDERED: SODIUM CHLORIDE 0.9% 1,000 ML IV STA (17:10)
[2023-01-08 17:15] LABS: BILIRUBIN,URINE NEGATIVE (NEGATIVE); GLUCOSE, URINE (UA) NEGATIVE (NEGATIVE); KETONES,URINE (UA) 15 mg/dL (NEGATIVE); LEUKOCYTE ESTERASE, URINE NEGATIVE (NEGATIVE); NITRITE,URINE NEGATIVE (NEGATIVE); OCCULT BLOOD,URINE NEGATIVE (NEGATIVE); PROTEIN,URINE NEGATIVE (NEGATIVE); UROBILINOGEN,URINE 0.2 (NORMAL) E.U./dL (NORMAL)
[2023-01-08 17:16] LABS: CLARITY,URINE CLEAR (CLEAR)
[2023-01-08 17:23] LABS: ALBUMIN 3.9 g/dL (3.2-5.5); ALBUMIN/GLOBULIN RATIO 1.1 (1.0-2.2); BILIRUBIN,TOTAL 0.7 mg/dL (0.2-1.0); CALCIUM 10.3 mg/dL (8.5-10.3); CREATININE 0.9 mg/dL (0.6-1.2); POTASSIUM 4.6 mmol/L (3.5-5.0); TOTAL PROTEIN 7.5 g/dL (6.7-8.2)
[2023-01-08 17:42] LABS: MAGNESIUM 2.2 mg/dL (1.7-2.8)
[2023-01-08] MEDS ORDERED: MECLIZINE 12.5 MG TABLET PO STA (18:47)
[2023-01-08 18:59] VITALS: BP 167/83
[2023-01-08] MEDS ORDERED: ONDANSETRON ODT 4 MG Prepack 2 TL PRN (19:22)
== END 2023-01-08 20:21 | disposition home or self-care (01) ==
LOC: EDUNIT# → ED 15:35
DX: R42 Dizziness and giddiness (principal); R25.2 Cramp and spasm; R11.2 Nausea with vomiting, unspecified; I10 Essential (primary) hypertension; Z79.82 Long term (current) use of aspirin; Z79.899 Other long term (current) drug therapy
CPT/HCPCS: 36415; 80053; 81003; 82550; 83690; 83735; 84484; 85025; 93005; 96360; 99284; A9270; 81001; 87086

== ENCOUNTER 2023-02-08 14:19 | Outpatient (CLI) | payer MEDICARE, OTHER ==
--- NOTE | 2023-02-08 16:15 | XRAY Report ---
PROCEDURE: Hip w/Pelvis 2-3V RT INDICATIONS: HIP JOINT PAIN,RIGHT TECHNIQUE: AP pelvis with lateral view(s) of the right hip(s). COMPARISON: None. FINDINGS: Bones: No fractures or dislocations. Pelvic ring appears intact. No suspicious bony lesions. Nonu niform joint space narrowing. Soft tissues: The visualized bowel gas pattern is normal. No suspicious soft tissue calcifications. IMPRESSION: Mild right hip osteoarthritis. Reviewed by: Saturnino Franklin on 02/08/2023 4:13 PM PDT Approved by: Saturnino Franklin on 02/08/2023 4:13 PM PDT Station ID: [id number]
== END 2023-02-08 14:20 | disposition home or self-care (01) ==
LOC: DI 14:19
PROVIDERS: ATTEND Family Medicine
DX: M16.11 Unilateral primary osteoarthritis, right hip (principal)

== ENCOUNTER 2023-07-28 02:54 | Emergency (ER) | payer MEDICARE, OTHER ==
--- NOTE | 2023-07-28 03:49 | ED Physician Documentation ---
PD HPI NECK PAIN - Stated complaint Stated Complaint: NECK PX - Chief complaint Chief Complaint: General - History obtained from History obtained from: Patient - Additional information Additional information: HPI from patient. Patient c/o left-sided neck pain, woke from sleep with this pain 4 days ago. No injury. Has had similar symptoms before and has been T+R from this ED for same. The pain is constant and steadily progressive in intensity as well as increasingly limited neck ROM due to exacerbation of pain (with rotation in either direction as well as flexion and, to a lesser degree, extension). With neck movement, the pain radiates to the right side, as well. Denies numbness, weakness. Review of Systems Constitutional: denies: Fever Ears: denies: Ear pain Musculoskeletal: reports: Neck pain Neurologic: denies: Focal weakness, Numbness, Headache, Head injury PD PAST MEDICAL HISTORY - Past Medical History Past Medical History: Yes Cardiovascular: Hypertension Respiratory: None Neuro: None Endocrine/Autoimmune: None : Benign prostate hypertrophy Musculoskeletal: Chronic back pain, Other Other Past Medical History: Chronic R hip pain - Past Surgical History Past Surgical History: Yes General: Appendectomy Ortho: Rotator cuff repair - Present Medications Home Medications: Ambulatory Orders Medication Instructions Recorded Confirmed Aspirin [Aspir 81] 81 mg PO QPM 07/23/15 07/28/23 Alfuzosin HCl [Alfuzosin HCl ER] 10 mg PO DAILY PRN 07/28/23 07/28/23 Calcium Carb/Mag Ox/Zinc Sulf 1 tab PO DAILY 07/28/23 07/28/23 [Pho-Eli-Jiie 334-134-5 mg Tab] Cyclobenzaprine [Flexeril] 10 mg PO TID PRN #20 tablet 07/28/23 Fexofenadine [Ann] 60 mg PO DAILY 07/28/23 07/28/23 Finasteride [Proscar] 5 mg PO DAILY 07/28/23 07/28/23 Lidocaine Patch 5% [Lidoderm Patch] 1 each TOP DAILY PRN #20 patch 07/28/23 traMADol [Ultram] 50 mg PO Q4-6H PRN #14 tablet 07/28/23 - Allergies Allergies/Adverse Reactions: Allergies Allergy/AdvReac Type Severity Reaction Status Date / Time Sulfa (Sulfonamide Allergy Diaphoresis Verified 01/08/23 15:41 Antibiotics) - Social History Does the pt smoke?: No Smoking Status: Never smoker Does the pt drink ETOH?: No Does the pt have substance abuse?: No - Immunizations Immunizations are current?: Yes - POLST Patient has POLST: No PD ED PE NORMAL - Vitals Vital signs reviewed: Yes - General General: Alert and oriented X 3, Well developed/nourished, Other (NAD at rest, obvious painful distress with movement involving neck ) - Neck Neck: No bony TTP - Derm Derm: No rash Results - Vitals Vitals: Oxygen O2 Source Room air - Rads (name of study) CT cervical spine Relevant Findings:: Prelim report reviewed, See rad report PD Medical Decision Making - ED course Complexity details: reviewed results, re-evaluated patient, considered differential, d/w patient ED course: CT cervical spine reflects diffuse degenerative changes but no acute findings such as pathologic fracture, wedge compression fracture, or listhesis. He is given IM toradol, a lidoderm patch is placed on left side of neck, and he is given 10mg PO flexeril. On reevaluation, results of CT discussed. He reports mild improvement in symptoms but says he is comfortable going home at this point. We discussed options for analgesia, and he prefers to avoid narcotics as he has unpleasant side effects in the past with vicodin ("makes me loopy", per patient). He has been having inadequate relief with ibuprofen. After further discussion, mutual decision making arrived at decision to rx tramadol. I e- prescribed tramadol, flexeril, and lidoderm patches. I suspect musculoskeletal origin of pain, with differential including, but not limited to, muscle spasm, nerve impingement. Return precautions discussed, advised to seek follow up with PCP, next available appointment Departure - Departure Disposition: 01 Home, Self Care Clinical Impression: Neck pain Condition: Good Instructions: ED Neck Pain No Trauma Follow-Up: Donnell Mccormick MD [Primary Care Provider] - (Call to arrange next available appointment) Prescriptions: Cyclobenzaprine [Flexeril] 10 mg PO TID PRN #20 tablet PRN Reason: Spasms Lidocaine Patch 5% [Lidoderm Patch] 1 each TOP DAILY PRN #20 patch PRN Reason: Pain 5-7 traMADol [Ultram] 50 mg PO Q4-6H PRN #14 tablet PRN Reason: Pain 5-7 Comments: The CT scan of your neck shows diffuse degenerative changes of your cervical spine. These findings reflect chronic changes. They may be contributing to your symptoms, but no clear cause is apparent based on the CT scan. Follow-up with your primary care provider, next available appointment. If your symptoms are persistent or recurrent, further testing might be indicated to further try to determine the cause of your symptoms. As we discussed, there was an incidental finding of patchy abnormalities in your left upper lung. The nature of this finding is unclear, and also might benefit from further testing by your primary care provider to exclude diagnoses such as malignancy (cancer). The radiologist's reading of your CT scan is that the finding is possibly consistent with pneumonia. However, you are not have any signs nor symptoms of pneumonia, so this is a doubtful explanation. The finding in your left upper lobe on the CT scan would not explain your neck pain. I am providing you with prescriptions for lidocaine patches, cyclobenzaprine (muscle relaxant), and tramadol (a narcotic/opioid pain medication). I am prescribing a short course of narcotic pain medication for you. These are potentially dangerous and addictive medications that should be used carefully. These medications may constipate you. Take an [id number] stool softener (docusate) twice daily with plenty of water while taking these medications. If you go 24 hours without a bowel movement, take [id number] miralax, per package instructions. Do not drink or drive while taking these medications. If you received narcotic or sedating medications while in the emergency department, do not drive for 24 hours. Store this medication in a safe, secure place and out of reach of children. It is a violation of federal law to give or sell this medication to another person or to use in a manner other than prescribed. The ED will not refill narcotic prescriptions, including prescriptions lost or stolen. To dispose of unwanted medications: 1. [facility] [address] in [place] has a medication drop box. They accept prescription medications (in pill form) Sunday through Sunday 9:00 a.m. to 5:00 p.m. 2. [facility] [employer] accepts prescription medications (in pill form only) for disposal year round. Call for more information. 3. Contact the [facility] for the next [employer] sponsored prescription drug collection event. , [phone], or [phone]; Forms: PCP List Discharge Date/Time: 07/28/23 06:28
[2023-07-28] MEDS ORDERED: KETOROLAC 15 MG/ML VIAL IM STA (04:03)
[2023-07-28] MEDS ORDERED: LIDOCAINE PATCH 5% TOP STA (04:03)
[2023-07-28] MEDS ORDERED: CYCLOBENZAPRINE 10 MG TABLET PO STA (04:03)
[2023-07-28 05:57] VITALS: O2SAT 99
[2023-07-28 06:23] VITALS: BP 155/75
--- NOTE | 2023-07-28 09:46 | CT Report ---
PROCEDURE: CT cervical spine without contrast INDICATIONS: neck pain, atraumatic TECHNIQUE: Helical axial CT of the cervical spine was obtained without contrast and reformatted in m ultiple planes. Radiation dose reduction was achieved utilizing automated exposure control or adjus tment of mA and/or kV according to patient size. COMPARISON: None. FINDINGS: Bones: No fractures or dislocations. Visualized superior ribs are intact. Disc space narrowing and facet arthropathy noted in the mid cervical spine resulting in mild central and bilateral mild to mo derate foraminal stenosis. Degenerative ankylosis of the left C4-5 facet noted Soft tissues: Prevertebral soft tissues are normal in thickness. No paravertebral hematomas. No ap ical pneumothoraces. Focal airspace infiltrative density noted in the left upper lobe IMPRESSION: Multilevel degenerative disc disease and arthropathy without fracture or traumatic malalignment Focal airspace infiltrative density in the left upper lobe, likely pneumonia. Follow-up to resolution . Note: This final report is concordant with the preliminary after-hours interpretation provided by [facility], [facility] Reviewed by: Yaya Gallegos MD on 07/28/2023 8:44 AM MARTINEZ Approved by: Yaya Gallegos MD on 07/28/2023 8:44 AM MARTINEZ Station ID: [id number]
== END 2023-07-28 06:28 | disposition home or self-care (01) ==
LOC: ED 02:54
DX: M54.2 Cervicalgia (principal); I10 Essential (primary) hypertension; Z79.899 Other long term (current) drug therapy; Z79.82 Long term (current) use of aspirin
CPT/HCPCS: 72125; 96372; 99283; 99284; A9270

== ENCOUNTER 2023-08-24 07:58 | Outpatient (CLI) | payer MEDICARE, OTHER ==
--- NOTE | 2023-08-24 12:18 | CT Report ---
PROCEDURE: CHEST WO INDICATIONS: PULMONARY NODULE TECHNIQUE: Noncontrast 1mm axial images were acquired from the pulmonary apices to the posterior costophrenic an gles. Axial 5 mm soft tissue kernel reconstructions were performed as well as 8 mm axial MIP and cor onal and sagittal 5 mm reformations. For radiation dose reduction, the following was used: automate d exposure control, adjustment of mA and/or kV according to patient size. COMPARISON: CT cervical spine on 07/28/2023. CXR 02/11/2017. CT pulmonary angiogram 07/23/2015. FINDINGS: Image quality: Excellent. Lungs and pleura: Areas of groundglass opacity in the upper lobes bilaterally. Opacity at the left up per lobe is unchanged compared to 07/28/2023. The right side is outside the field of view on the prior CT. Minimal streaky opacity in the right upper lobe seen on the CT from 2014. No mass. Scattered calcific granuloma. Airways are clear. No pleural effusions. No pneumothorax. Calc ified pleural plaques. Mediastinum: Heart size is normal. Three-vessel coronary artery calcifications. No pericardial effusi on. No large vessel abnormality. No mediastinal adenopathy by size criteria. Small hiatal hernia. Chest wall and lower neck: Thyroid is unremarkable. No axillary or supraclavicular adenopathy by size . Bones: No aggressive osseous abnormality. Bridging vertebral body osteophytes. Upper Abdomen: Low-density right renal cyst. No adrenal nodule. IMPRESSION: 1. Right and left upper lobe airspace opacities. The left upper lobe airspace opacity is unchanged co mpared to 07/28/2023. This could represent scarring. Pneumonia is difficult to exclude. Recommend follo w-up CT chest in 6 months. 2. 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 3. Three-vessel coronary artery calcifications. 4. Small hiatal hernia. Reviewed by: Luis Angel Cain MD on 08/24/2023 12:16 PM PDT Approved by: Luis Angel Cain MD on 08/24/2023 12:16 PM PDT Station ID: [id number]
== END 2023-08-24 07:59 | disposition home or self-care (01) ==
LOC: DI 07:58
PROVIDERS: ATTEND Family Medicine
DX: R91.1 Solitary pulmonary nodule (principal); J92.9 Pleural plaque without asbestos

== ENCOUNTER 2023-10-20 09:38 | Outpatient (CLI) | payer MEDICARE, OTHER | END 2023-10-20 23:59 | disposition EMS.NT | LOC: EMS 09:38 | DX: M54.50 Low back pain, unspecified (principal); Z91.81 History of falling ==

== ENCOUNTER 2024-03-30 15:49 | Emergency (ER) | payer MEDICARE, OTHER ==
--- NOTE | 2024-03-30 16:03 | ED Physician Documentation ---
History of Present Illness - Stated complaint Stated Complaint: FALL/HIT HEAD/DIZZY - Chief complaint Chief Complaint: Trauma Hd/Nk - History obtained from History obtained from: Patient - History of Present Illness Timing: Today Pain level max: 8 Pain level now: 6 - Additonal information Additional information: Patient is an 88-year-old male who complains of intermittent dizziness. He states that yesterday he had a "dizzy spell". He states that he fell injuring his right shoulder and head. He states that he has been having intermittent dizzy spells over the past few weeks. He states they usually last for a few seconds. No chest pain. No shortness of breath. He has not anticoagulated. He states that he decided to go to bed after he hit his head last night but as he felt dizzy again today decided to come get checked. He states his only medication is on aspirin daily at home. Review of Systems Constitutional: denies: Fever, Chills Ears: denies: Ear pain Nose: denies: Rhinorrhea / runny nose, Congestion Cardiac: denies: Chest pain / pressure, Palpitations Respiratory: denies: Dyspnea GI: denies: Nausea, Vomiting, Diarrhea Skin: denies: Rash Musculoskeletal: denies: Neck pain, Back pain Neurologic: denies: Headache PD PAST MEDICAL HISTORY - Past Medical History Cardiovascular: Hypertension Respiratory: None Neuro: None Endocrine/Autoimmune: None : Benign prostate hypertrophy Musculoskeletal: Chronic back pain, Other - Past Surgical History Past Surgical History: Yes General: Appendectomy Ortho: Rotator cuff repair - Present Medications Home Medications: Ambulatory Orders Medication Instructions Recorded Confirmed Aspirin [Aspir 81] 81 mg PO QPM 07/23/15 07/28/23 Alfuzosin HCl [Alfuzosin HCl ER] 10 mg PO DAILY PRN 07/28/23 07/28/23 Calcium Carb/Mag Ox/Zinc Sulf 1 tab PO DAILY 07/28/23 07/28/23 [Zgo-Maw-Bjgb 334-134-5 mg Tab] Cyclobenzaprine [Flexeril] 10 mg PO TID PRN #20 tablet 07/28/23 Fexofenadine [Ann] 60 mg PO DAILY 07/28/23 07/28/23 Finasteride [Proscar] 5 mg PO DAILY 07/28/23 07/28/23 Lidocaine Patch 5% [Lidoderm Patch] 1 each TOP DAILY PRN #20 patch 07/28/23 traMADol [Ultram] 50 mg PO Q4-6H PRN #14 tablet 07/28/23 - Allergies Allergies/Adverse Reactions: Allergies Allergy/AdvReac Type Severity Reaction Status Date / Time Sulfa (Sulfonamide Allergy Diaphoresis Verified 03/30/24 15:59 Antibiotics) - Social History Does the pt smoke?: No Smoking Status: Never smoker Does the pt drink ETOH?: No Does the pt have substance abuse?: No - Immunizations Immunizations are current?: Yes - POLST Patient has POLST: No PD ED PE NORMAL - Vitals Vital signs reviewed: Yes - General General: Alert and oriented X 3, No acute distress - HEENT HEENT: Atraumatic, PERRL, EOMI, Moist mucous membranes, Pharynx benign - Neck Neck: Supple, no meningeal sign, No bony TTP - Cardiac Cardiac: RRR, Strong equal pulses - Respiratory Respiratory: No respiratory distress, Clear bilaterally - Abdomen Abdomen: Soft, Non tender, Non distended - Back Back: No CVA TTP, No spinal TTP - Derm Derm: Warm and dry - Extremities Extremities: Other (Mild tenderness over the right glenohumeral joint. Full range of motion, but does have some pain. Neurovascular intact including the axillary nerve. 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, No motor deficit, No sensory deficit, Normal speech Eye Opening: Spontaneous Motor: Obeys Commands Verbal: Oriented GCS Score: 15 - Psych Psych: Normal mood, Normal affect Results - Vitals Vitals: Vital Signs - 24 hr 03/30/24 03/30/24 03/30/24 16:08 16:30 18:02 Temperature 36.2 C L Heart Rate 125 H 60 58 L Respiratory 16 14 14 Rate Blood Pressure 151/66 H 162/70 H 168/70 H O2 Saturation 98 98 100 03/30/24 20:00 Temperature Heart Rate 57 L Respiratory 14 Rate Blood Pressure 153/65 H O2 Saturation 99 Oxygen O2 Source Room air - EKG (time done) 1635 EKG releavant findings:: EKG personally interpreted by author of this note. Relevant findings are: Rate: Rate (enter#) (58) Rhythm: NSR Cotter: Normal Intervals: 1st degree AVB, Wide QRS (nonspecific IVCD) Ischemia: Normal ST segments - Labs Labs: Laboratory Tests 03/30/24 03/30/24 03/30/24 16:32 16:32 18:30 WBC 7.5 RBC 4.42 L Hgb 13.1 L Hct 41.4 L MCV 93.7 MCH 29.6 MCHC 31.6 L RDW 13.8 Plt Count 282 MPV 9.8 Neut # (Auto) 3.9 Lymph # (Auto) 2.2 [place] # (Auto) 0.9 Eos # (Auto) 0.4 Baso # (Auto) 0.0 Absolute Nucleated RBC 0.00 Nucleated RBC % 0.0 Sodium 138 Potassium 4.7 H Chloride 108 Carbon Dioxide 25 Anion Gap 5.0 L BUN 23 H Creatinine 1.0 Estimated GFR (MDRD) 70 L Glucose 95 Calcium 9.4 Total Bilirubin 0.3 AST 16 ALT 12 Alkaline Phosphatase 60 Troponin I High Sens 9.1 Total Protein 6.6 Albumin 3.9 Globulin 2.7 Albumin/Globulin Ratio 1.4 Lipase 23 - Rads (name of study) head CT Relevant Findings:: Final report received, See rad report R shoulder xray Relevant Findings:: Final report received, See rad report PD Medical Decision Making - ED course Complexity details: reviewed results, re-evaluated patient, considered differential, d/w patient, d/w beverage sales consultant (Dr. Rosario feels that some of the drop beats may be due to Mobitz 1 or Mobitz 2 or possibly nonconducted PACs.) ED course: 88-year-old male presents the emergency department after a fall yesterday and is complaining of intermittent dizzy spells. His head CT does not show any acute abnormalities. Laboratory testing does not show any acute abnormalities. Right shoulder x-ray does not show any acute abnormalities. He was noted to have intermittent dropped beats on his telemetry monitoring. Appears to be usually no more than 1 beat, occasionally will have another normal beat and then another dropped beat. He has seen Dr. Lopes in the [facility] for cardiology in the past, contacted [facility] cardiology/[facility] cardiology. Dr. Rosario, reviewed the telemetry findings. He states that that since the patient is not having syncope, this could be managed either inpatient or outpatient. The patient adamantly refuses to be transferred or placed inpatient for a pacemaker. The patient understands that this may be causing his dizziness and may be leading to him falling. He understands this could lead to a broken hip, head bleed or other serious injury. Could also lead to syncope or sudden cardiac . Patient states that he understands all of this and still does not want to be transferred for urgent pacemaker placement. Therefore the patient will follow-up in the morning with cardiology to be scheduled as an outpatient for pacemaker placement. Patient will return if he worsens or changes his mind. Patient counseled regarding signs and symptoms for which I believe and urgent re-evaluation would be necessary. Patient with good understanding of and agreement to plan and is comfortable going home at this time This document was made in part using voice recognition software. While efforts are made to proofread this document, sound alike and grammatical errors may occur. Departure - Departure Disposition: 01 Home, Self Care Clinical Impression: Mobitz I, Mobitz II Closed head injury Qualifiers: Encounter type: initial encounter Qualified Code(s): S09.90XA - Unspecified injury of head, initial encounter Condition: Good Instructions: ED Head Injury Closed Follow-Up: Sammy Lopes MD [Provider Admit Priv/Credential] - Sammy Lopes MD [Provider Admit Priv/Credential] - Comments: Please call Dr. Lopes's office tomorrow. Do not use [employer] to message them, please actually call the office. They will need to schedule you for an outpatient pacemaker. I spoke with Dr. Eddy diez. He will put a note in your chart. Please return if you worsen. You were given a copy of the rhythm strips today as well. Please take these with you to your appointment with Dr. Lopes. We did discuss keeping you in the hospital and transferring you to [facility] for an urgent pacemaker. You have refused this today. You do understand that this could lead to continued dizziness, more falls, injuries from fall such as hip fractures and head injuries. You also understand that this could result in . Please return if you worsen. Forms: PCP List Discharge Date/Time: 03/30/24 20:45
[2024-03-30] MEDS: BACITRACIN ZINC OINT 1 PACKET TOP STA (16:24)
[2024-03-30 16:37] LABS: BASOPHILS % (AUTO) 0.5 %; EOSINOPHILS # (AUTO) 0.4 10^3/uL (0.0-0.7); EOSINOPHILS % (AUTO) 5.5 %; HCT - HEMATOCRIT 41.4 % (42.0-52.0); HGB - HEMOGLOBIN 13.1 g/dL (14.0-18.0); LYMPHOCYTES # (AUTO) 2.2 10^3/uL (1.5-3.5); MEAN CORPUSCULAR HEMOGLOBIN 29.6 pg (27.0-31.0); MEAN CORPUSCULAR HGB CONC 31.6 g/dL (32.0-36.0); MEAN CORPUSCULAR VOLUME 93.7 fL (80.0-94.0); MEAN PLATELET VOLUME 9.8 fL (7.4-11.4); MONOCYTES # (AUTO) 0.9 10^3/uL (0.0-1.0); MONOCYTES % (AUTO) 11.8 %; NEUTROPHILS # (AUTO) 3.9 10^3/uL (1.5-6.6); NEUTROPHILS % (AUTO) 52.1 %; PLT - PLATELET COUNT 282 10^3/uL (130-450); RED BLOOD COUNT 4.42 10^6/uL (4.70-6.10); RED CELL DISTRIBUTION WIDTH 13.8 % (12.0-15.0); WHITE BLOOD COUNT 7.5 x10^3/uL (4.8-10.8)
[2024-03-30 16:55] LABS: ALBUMIN 3.9 g/dL (3.2-5.5); ALBUMIN/GLOBULIN RATIO 1.4 (1.0-2.2); BILIRUBIN,TOTAL 0.3 mg/dL (0.2-1.0); CALCIUM 9.4 mg/dL (8.5-10.3); POTASSIUM 4.7 mmol/L (3.5-4.5); TOTAL PROTEIN 6.6 g/dL (6.4-8.9)
--- NOTE | 2024-03-30 17:28 | CT Report ---
PROCEDURE: CT brain without contrast INDICATIONS: fall, head injury TECHNIQUE: Helical axial CT of the brain was obtained without contrast and reformatted in multiple p lanes. Radiation dose reduction was achieved using automated exposure control or adjustment of mA and /or kV according to patient size. COMPARISON: 02/11/2017 FINDINGS: CSF spaces: Ventricles are appropriate in size and position. No hydrocephalus. Basal cisterns unre markable. Brain: No midline shift. No intracranial masses or hemorrhage. Rodriguez-white matter interface is norm al. Skull and face: Calvarium and skull base are unremarkable without suspicious lesion. Sinuses: Visualized sinuses and mastoids are clear. IMPRESSION: Unremarkable CT of the brain. No intracranial hemorrhage or mass effect Reviewed by: Yaya Gallegos MD on 03/30/2024 4:27 PM MARTINEZ Approved by: Yaya Gallegos MD on 03/30/2024 4:27 PM AKFLAQUITA Station ID: [id number]
--- NOTE | 2024-03-30 18:05 | XRAY Report ---
PROCEDURE: Shoulder 2+V RT INDICATIONS: fall, r shoulder pain TECHNIQUE: 3 views of the shoulder were acquired. COMPARISON: None FINDINGS: Bones: No fractures or dislocations. No suspicious bony lesions. Visualized ribs appear intact. Soft tissues: Calcified granulomas noted in the lung IMPRESSION: Degenerative proximal joint. No fracture. Reviewed by: Yaya Gallegos MD on 03/30/2024 5:03 PM AKDT Approved by: Yaya Gallegos MD on 03/30/2024 5:03 PM AKDT Station ID: [id number]
[2024-03-30 20:44] VITALS: BP 153/65; O2SAT 99
== END 2024-03-30 20:45 | disposition home or self-care (01) ==
LOC: ED 15:49
DX: S09.90XA Unspecified injury of head, initial encounter (principal); W18.39XA Other fall on same level, initial encounter; Y92.480 Sidewalk as the place of occurrence of the external cause; I44.1 Atrioventricular block, second degree
CPT/HCPCS: 36415; 80053; 83690; 84484; 85025; 93005; 99284; 99285

== ENCOUNTER 2024-07-23 08:55 | Outpatient (CLI) | payer MEDICARE, OTHER ==
[2024-07-23 09:14] LABS: BASOPHILS % (AUTO) 0.4 %; EOSINOPHILS # (AUTO) 0.2 10^3/uL (0.0-0.7); EOSINOPHILS % (AUTO) 2.6 %; HCT - HEMATOCRIT 44.1 % (42.0-52.0); HGB - HEMOGLOBIN 14.1 g/dL (14.0-18.0); LYMPHOCYTES # (AUTO) 1.9 10^3/uL (1.5-3.5); LYMPHOCYTES % (AUTO) 20.5 %; MEAN CORPUSCULAR HEMOGLOBIN 29.6 pg (27.0-31.0); MEAN CORPUSCULAR VOLUME 92.5 fL (80.0-94.0); MEAN PLATELET VOLUME 9.6 fL (7.4-11.4); MONOCYTES # (AUTO) 0.9 10^3/uL (0.0-1.0); MONOCYTES % (AUTO) 9.4 %; NEUTROPHILS # (AUTO) 6.3 10^3/uL (1.5-6.6); NEUTROPHILS % (AUTO) 66.8 %; PLT - PLATELET COUNT 295 10^3/uL (130-450); RED BLOOD COUNT 4.77 10^6/uL (4.70-6.10); RED CELL DISTRIBUTION WIDTH 14.2 % (12.0-15.0); WHITE BLOOD COUNT 9.4 x10^3/uL (4.8-10.8)
[2024-07-23 09:28] LABS: ALBUMIN 4.1 g/dL (3.2-5.5); ALBUMIN/GLOBULIN RATIO 1.5 (1.0-2.2); ALKALINE PHOSPHATASE 68 IU/L (42-121); ALT ALANINE AMINOTRANSFERASE 11 IU/L (10-60); AST ASPARTATE AMINOTRANSFERASE 12 IU/L (10-42); BILIRUBIN,TOTAL 0.5 mg/dL (0.2-1.0); BUN - BLOOD UREA NITROGEN 31 mg/dL (6-20); CALCIUM 9.8 mg/dL (8.5-10.3); CARBON DIOXIDE - CO2 28 mmol/L (21-32); CHLORIDE 103 mmol/L (101-111); CHOL/HDL RATIO 3.3 (<5.0); CHOLESTEROL 197 mg/dL; CREATININE 1.3 mg/dL (0.6-1.3); GFR - MDRD 52 (>89); GLUCOSE 95 mg/dL (74-104); HDL CHOLESTEROL 60 mg/dL; LDL CHOLESTEROL,CALCULATED 115 mg/dL; LDL/HDL RATIO 1.9 (<3.6); POTASSIUM 4.8 mmol/L (3.5-4.5); SODIUM 136 mmol/L (135-145); TOTAL PROTEIN 6.9 g/dL (6.4-8.9); TRIGLYCERIDES 108 mg/dL; VLDL CHOLESTEROL 22 mg/dL
[2024-07-23 09:43] LABS: THYROID STIMULATING HORMONE 3.23 uIU/mL (0.34-5.60)
== END 2024-07-23 08:56 | disposition home or self-care (01) ==
LOC: LAB 08:55
PROVIDERS: ATTEND Family Medicine
DX: N40.0 Benign prostatic hyperplasia without lower urinary tract symptoms (principal); Z12.5 Encounter for screening for malignant neoplasm of prostate; I25.84 Coronary atherosclerosis due to calcified coronary lesion; M54.2 Cervicalgia; M54.16 Radiculopathy, lumbar region; M06.4 Inflammatory polyarthropathy; R91.1 Solitary pulmonary nodule
CPT/HCPCS: 36415; 80053; 80061; 84443; 85025; G0103; 83721; 84153

== ENCOUNTER 2024-07-29 08:00 | Outpatient (CLI) | payer MEDICARE, OTHER | END 2024-07-29 23:59 | disposition home or self-care (01) | LOC: LAB.N 08:00 | PROVIDERS: ATTEND Physician Assistant Medical | DX: J06.9 Acute upper respiratory infection, unspecified (principal) ==

== ENCOUNTER 2024-08-03 12:05 | Emergency (ER) | payer MEDICARE, OTHER ==
--- NOTE | 2024-08-03 13:03 | ED Physician Documentation ---
History of Present Illness - Stated complaint Stated Complaint: L KNEE SWELLING PX - Chief complaint Chief Complaint: Ext Problem - History obtained from History obtained from: Patient - Additonal information Additional information: 88-year-old male presents with left knee pain for the last 7 days. Denies any acute injury, no history of knee issues I does have other areas of arthritis. No history of gout. Pain is in the left lateral knee, fairly localized, worse with flexion or extension. He has some generalized knee swelling, no pain in the posterior knee, no pain in the calf or lower leg. Denies any falls twisting or other injuries. Has been taking ibuprofen and Tylenol without relief, takes occasional tramadol as well which she has prescribed. He has a follow-up with orthopedic surgery next week for neck and back issues but plans to address his knee as well. Review of Systems Constitutional: reports: Reviewed and negative Cardiac: reports: Reviewed and negative Respiratory: reports: Reviewed and negative Skin: reports: Reviewed and negative Musculoskeletal: reports: Joint pain, Joint swelling Neurologic: reports: Reviewed and negative PD PAST MEDICAL HISTORY - Past Medical History Past Medical History: Yes Cardiovascular: None Respiratory: None Neuro: None Endocrine/Autoimmune: None : Benign prostate hypertrophy Musculoskeletal: Chronic back pain, Other - Past Surgical History Past Surgical History: Yes General: Appendectomy Ortho: Rotator cuff repair - Present Medications Home Medications: Ambulatory Orders Medication Instructions Recorded Confirmed Aspirin [Aspir 81] 81 mg PO QPM 07/23/15 07/28/23 Alfuzosin HCl [Alfuzosin HCl ER] 10 mg PO DAILY PRN 07/28/23 07/28/23 Calcium Carb/Mag Ox/Zinc Sulf 1 tab PO DAILY 07/28/23 07/28/23 [Wmz-Snr-Wqqw 334-134-5 mg Tab] Cyclobenzaprine [Flexeril] 10 mg PO TID PRN #20 tablet 07/28/23 Fexofenadine [Ann] 60 mg PO DAILY 07/28/23 07/28/23 Finasteride [Proscar] 5 mg PO DAILY 07/28/23 07/28/23 Lidocaine Patch 5% [Lidoderm Patch] 1 each TOP DAILY PRN #20 patch 07/28/23 traMADol [Ultram] 50 mg PO Q4-6H PRN #14 tablet 07/28/23 HYDROcod/ACETAM 5/325 [[place] 5/325] 1 - 2 tablet PO Q6H PRN #10 tablet 08/03/24 - Allergies Allergies/Adverse Reactions: Allergies Allergy/AdvReac Type Severity Reaction Status Date / Time oxycodone Allergy Hives Verified 08/03/24 12:26 Sulfa (Sulfonamide Allergy Diaphoresis Verified 08/03/24 12:26 Antibiotics) - Social History Does the pt smoke?: No Smoking Status: Never smoker Does the pt drink ETOH?: No Does the pt have substance abuse?: No - Immunizations Immunizations are current?: Yes - POLST Patient has POLST: No PD ED PE NORMAL - Vitals Vital signs reviewed: Yes - General General: Alert and oriented X 3, No acute distress, Well developed/nourished - HEENT HEENT: Atraumatic, Moist mucous membranes - Derm Derm: Normal color, Warm and dry, No rash - Extremities Extremities: No deformity, No edema, No calf tenderness / cord, Other (Mild generalized left knee swelling no erythema. There is focal tenderness of the left lateral joint line, increased with flexion and extension. No obvious laxity. No posterior knee pain, no calf pain or fullness.) Results - Vitals Vitals: Vital Signs - 24 hr 08/03/24 12:18 Temperature 36.5 C Heart Rate 74 Respiratory 16 Rate Blood Pressure 110/51 L O2 Saturation 99 Oxygen O2 Source Room air - Rads (name of study) No standard instances Relevant Findings:: Final report received PD Medical Decision Making - ED course Complexity details: reviewed results, considered differential, d/w patient ED course: 88-year-old male presented with acute left lateral knee pain as described in HPI. He had no injury preceding this. On exam, he has focal tenderness of the left anterior lateral knee, mild swelling no erythema to suggest a septic arthritis, no systemic symptoms. He has no history of gout and this does not appear to be gout. X-ray shows osteoarthritis. Best with patient that this certainly could be an exacerbation of his osteoarthritis versus meniscal fraying or tear, I think less likely ligamentous injury as patient had no preceding injuries. I discussed options for treatment with patient, he is quite uncomfortable despite taking ibuprofen and Tylenol and tramadol therefore I did offer a Kenalog injection no specifically addressed the risks versus benefits of this medication. The patient is familiar as he has had the in the past for other injuries though not in thisJoint pain though not specifically in this knee in the past. He verbally agreed to proceed with a Kenalog and lidocaine injection into the left knee. The knee was prepped with alcohol, chlorhexidine and Betadine and using a sterile technique, I injected 40 mg of Kenalog and 2 mL of plain lidocaine 1% into the left knee. The patient tolerated well. A Band- Aid was applied. I did discuss with patient that he may have some increase soreness today but thereafter should have improvement, if he has any increasing pain, erythema, fever or new concerns he should return to the ER. Otherwise the patient will follow-up with his primary doctor and orthopedist regarding this knee pain, he may benefit from an MRI in the future if no improvement. I have temporarily changed his medication from tramadol to hydrocodone and he should continue as needed ibuprofen and ice of the area. Departure - Departure Disposition: 01 Home, Self Care Clinical Impression: Left knee pain Qualifiers: Chronicity: acute Qualified Code(s): M25.562 - Pain in left knee Condition: Good Instructions: Knee Pain Prescriptions: HYDROcod/ACETAM 5/325 [[place] 5/325] 1 - 2 tablet PO Q6H PRN #10 tablet PRN Reason: Pain Comments: I am prescribing a short course of narcotic pain medication for you. These are potentially dangerous and addictive medications that should be used carefully. These medications may constipate you. Take an ojez-zzj-vyakqqm stool softener (docusate) twice daily with plenty of water while taking these medications. If you go 24 hours without a bowel movement, take kqug-jca-ywtfpub miralax, per package instructions. Do not drink or drive while taking these medications. If you received narcotic or sedating medications while in the emergency department, do not drive for 24 hours. Store this medication in a safe, secure place and out of reach of children. It is a violation of federal law to give or sell this medication to another person or to use in a manner other than prescribed. The ED will not refill narcotic prescriptions, including prescriptions lost or stolen. To dispose of unwanted medications: 1. [facility]'s Office provides a drop box for medication in pill form only (no liquids) 8:00 am to 4:30 p.m. Sunday-Sunday in the lobby of the [facility], [address] Empty pills into ziplock bag before disposal. Call [phone] for information. 2.[employer] is a free service available to all [facility] residents. Go to [email or web address] Note that many narcotic pain relievers also contain Tylenol/acetaminophen. Please ensure that your total dose of acetaminophen from all sources does not exceed 3 g (3000 mg) per day. Please let continue to use ice on this area, you can use an Ken wrap if desired, and follow-up with Ortho next week as planned. If you develop any redness, increased pain or swelling or new concerns in the left knee, please return. Forms: PCP List
--- NOTE | 2024-08-03 14:11 | XRAY Report ---
PROCEDURE: Knee 4+V LT INDICATIONS: Trauma TECHNIQUE: 4 views of the knee(s) were acquired. COMPARISON: None. FINDINGS: Bones: No acute fractures or dislocations. No suspicious bony lesions. Tricompartmental osteoarth rosis. Soft tissues: Small knee joint effusion. No suspicious soft tissue calcifications or masses. IMPRESSION: No acute bony abnormality. Small joint effusion. Tricompartmental osteoarthrosis. If there is continued clinical concern for pathology or occult fracture, consider follow-up imaging w ith repeat radiographs in 10-14 days and possible advanced imaging (CT, MRI, bone scan) if symptoms p ersist. Reviewed by: Brannon Koehler MD on 08/03/2024 1:09 PM MARTINEZ Approved by: Brannon Koehler MD on 08/03/2024 1:09 PM MARTINEZ Station ID: [id number]
[2024-08-03] MEDS: TRIAMCINOLONE 40 MG/ML VIAL IO STA (14:16)
[2024-08-03] MEDS: LIDOCAINE 1% 2 ML VIAL SUBQ STA (14:16)
[2024-08-03 15:03] VITALS: BP 130/65; O2SAT 100
== END 2024-08-03 14:54 | disposition home or self-care (01) ==
LOC: ED 12:05
DX: M25.562 Pain in left knee (principal); N40.0 Benign prostatic hyperplasia without lower urinary tract symptoms; Z79.82 Long term (current) use of aspirin; Z79.899 Other long term (current) drug therapy
CPT/HCPCS: 20610; 99283